=== PATIENT | female | born 1945 | race Caucasian/White ===

== ENCOUNTER 2020-04-19 13:17 | Emergency (ER) | payer MEDICARE, SELFPAY ==
[2020-04-19 13:28] VITALS: BP 122/74; PULSE 72; RESP 16; TEMP 36.9; O2SAT 99; BMI 21.2
--- NOTE | 2020-04-19 13:36 | XR_ITS ---
WS: [id number] XR chest 1V portable [id number] REASON FOR EXAM: fever FINDINGS: The heart and mediastinum are within normal limits. No active pulmonary parenchymal or pleural disease is noted. Bony thorax is intact. XR/XR chest 1V portable [id number] IMPRESSION: No acute chest abnormality.
--- NOTE | 2020-04-19 13:43 | ED_ITS ---
HPI - General Adult General: Chief complaint: General Medical Stated complaint: FLU LIKE SYMPTOMS, FEVER X 3 DAYS Time Seen by Provider: 04/19/20 13:33 Source: patient and EMS Mode of arrival: EMS Limitations: no limitations History of Present Illness: HPI narrative: 75-year-old female who states that over the last 3 days she has had subjective fevers at home along with body ac hes. She denies any vomiting or diarrhea. She states she has had chills just felt ill. She is afebrile here. She denies any cough. She denies any dysuria. She denies any chest pain or neck pain. States she had a mild headache she rates a 3 out of 10. Associated symptoms: Deny chest pain, dyspnea, headache(s), nausea, rash or vomiting Review of Systems Const: Reports: fever(s), chills and body aches Eyes: Denies: blurry vision or eye discomfort ENMT: Denies: throat pain or dental pain Card: Denies: chest pain Resp: Denies: dyspnea GI: Denies: abdominal pain, nausea, vomiting or diarrhea : Denies: dysuria Musc: Denies: neck pain or back pain Skin/Breast: Denies: rash Neuro: Denies: headache(s) Psych: Denies: depression Yuri/Lymph: Denies: easy bruising All/Imm: Denies: urticaria Physical Exam Const: COMMON NORMALS: no acute distress, patient oriented x3 and healthy appearing HENMT: COMMON NORMALS: normocephalic and atraumatic HEAD & SCALP: normocephalic and atraumatic Eye: COMMON NORMALS: Equal, round and reactive pupils present and EOMs intact bilaterally PUPIL: Yes Equal, round and reactive pupils present Neck/C-Spine: COMMON NORMALS: full ROM and supple Chest: COMMONS NORMALS: normal inspection of the chest and normal palpation of entire chest wall Resp: COMMON NORMALS: normal respiratory effort, No retractions, No use of accessory muscles and clear to auscultation bilaterally AUSCULTATION: clear to auscultation bilaterally Cardio: COMMON NORMALS: regular rate, regular rhythm and No murmurs present (Cardio) RATE: regular rate RHYTHM: regular rhythm GI: COMMON NORMALS: Normal to inspection, nondistended, normoactive bowel sounds present, Soft to palpation, non-tender and no masses PALPATION: Yes Soft to palpation Extremity: COMMON NORMALS: normal to inspection and full ROM Neuro: COMMON NORMALS: patient oriented x3, moves all extremities and no focal motor deficits Psych: COMMON NORMALS: mental status grossly normal, Normal thought process present and cooperative THOUGHT PROCESS: Normal thought process present Skin: COMMON NORMALS: no rashes or lesions noted and no wounds GENERAL SKIN EXAM: no rashes or lesions noted Course Vital Signs: Vital signs: Vital Signs Temperature 98.4 F 04/19/20 13:28 Pulse Rate 72 04/19/20 13:28 Respiratory Rate 18 04/19/20 14:34 Blood Pressure 132/75 04/19/20 16:01 Pulse Oximetry 96 04/19/20 16:01 MDM - General Adult MDM Narrative: Medical decision making narrative: Patient presents here with fever and flulike symptoms. She is well-appearing here and blood work here including white count and urinalysis are normal. X-ray shows no acute pneumonia. Her flu test was negative. We will swab her for COVID and she is to self quarantine and return if worsening. Lab Data: Labs: Lab Results 04/19/20 04/19/20 04/19/20 Range/Units 13:48 13:48 14:40 WBC 6.0 (4.0-10.0) 10^3/ uL RBC 4.26 (4.1-5.3) 10^6/u L Hgb 13.2 (11.5-15.3) g/dL Hct 39.8 (37.0-47.0) % MCV 93.4 (81-99) fL MCH 31.0 (28.0-34.0) pg MCHC 33.2 (30.0-36.0) g/dL RDW 13.2 (12.1-15.1) % Plt Count 226 (130-400) 10^3/c mm MPV 9.3 (7.4-10.4) fL Neut % (Auto) 66.1 % Lymph % (Auto) 19.3 % [place] % (Auto) 13.3 % Eos % (Auto) 0.5 % Baso % (Auto) 0.5 % Neut # (Auto) 3.96 (1.8-7.7) 10^3/u L Lymph # (Auto) 1.2 (0.8-4.8) 10^3/u L [place] # (Auto) 0.8 (0.2-0.9) 10^3/u L Eos # (Auto) 0.0 (0.0-0.8) 10^3/u L Baso # (Auto) 0.0 (0.0-0.1) 10^3/u L Nucleated RBC % (a uto) 0 % Nucleated RBCs # 0.0 /100WBC Sodium 136 (136-145) mmol/L Potassium 4.0 (3.5-5.1) mmol/L Chloride 96 L (98-107) mmol/L Carbon Dioxide 25 (22-29) mmol/L Anion Gap 19.0 (5-19) BUN 22 (8-23) mg/dL Creatinine 1.0 H (0.5-0.9) mg/dL GFR Calculation Not Reportable Glucose 105 (65-115) mg/dL Calculated Osmolal ity 286 (285-295) mOsm/k g Calcium 9.8 (8.5-10.5) mg/dL Total Bilirubin 0.6 (0.15-1.2) mg/dL AST 18 (0-32) U/L ALT 11 (0-33) U/L Alkaline Phosphata se 60 (35-105) IU/L Total Protein 7.4 (6.6-8.7) g/dL Albumin 4.1 (3.5-5.2) g/dL Globulin 3.3 (1.3-4.6) g/dL Urine Color (Yellow) Urine Appearance (CLEAR) Urine pH (5-7) Ur Specific Gravit y (1.005-1.030) Urine Protein (Negative) Urine Glucose (UA) (Normal) Urine Ketones (Negative) Urine Blood (Negative) Urine Nitrate (Negative) Urine Bilirubin (Negative) Prot Sulfosalicyli c Acd (Negative) Urine Urobilinogen (Negative) mg/dL Ur Leukocyte Isabel ase (Negative) Urine RBC (0-2) /hpf Urine WBC (0-5) /hpf Ur Squamous Epith Cells (0-5) /hpf Ur Transition Epit h Cell /hpf Amorphous Sediment Urine Bacteria (NONE) /hpf Hyaline Casts /lpf Fine Granular Cast s /lpf Influenza Type A A g Negative (Negative) Influenza Type B A g Negative (Negative) 04/19/20 Range/Units 16:20 WBC (4.0-10.0) 10^3/ uL RBC (4.1-5.3) 10^6/u L Hgb (11.5-15.3) g/dL Hct (37.0-47.0) % MCV (81-99) fL MCH (28.0-34.0) pg MCHC (30.0-36.0) g/dL RDW (12.1-15.1) % Plt Count (130-400) 10^3/c mm MPV (7.4-10.4) fL Neut % (Auto) % Lymph % (Auto) % [place] % (Auto) % Eos % (Auto) % Baso % (Auto) % Neut # (Auto) (1.8-7.7) 10^3/u L Lymph # (Auto) (0.8-4.8) 10^3/u L [place] # (Auto) (0.2-0.9) 10^3/u L Eos # (Auto) (0.0-0.8) 10^3/u L Baso # (Auto) (0.0-0.1) 10^3/u L Nucleated RBC % (a uto) % Nucleated RBCs # /100WBC Sodium (136-145) mmol/L Potassium (3.5-5.1) mmol/L Chloride (98-107) mmol/L Carbon Dioxide (22-29) mmol/L Anion Gap (5-19) BUN (8-23) mg/dL Creatinine (0.5-0.9) mg/dL GFR Calculation Glucose (65-115) mg/dL Calculated Osmolal ity (285-295) mOsm/k g Calcium (8.5-10.5) mg/dL Total Bilirubin (0.15-1.2) mg/dL AST (0-32) U/L ALT (0-33) U/L Alkaline Phosphata se (35-105) IU/L Total Protein (6.6-8.7) g/dL Albumin (3.5-5.2) g/dL Globulin (1.3-4.6) g/dL Urine Color Yellow (Yellow) Urine Appearance Hazy A (CLEAR) Urine pH 8 H (5-7) Ur Specific Gravit y 1.015 (1.005-1.030) Urine Protein Neg (Negative) Urine Glucose (UA) Norm (Normal) Urine Ketones 1+ H (Negative) Urine Blood Neg (Negative) Urine Nitrate Negative (Negative) Urine Bilirubin Neg (Negative) Prot Sulfosalicyli c Acd Negative (Negative) Urine Urobilinogen 1 H (Negative) mg/dL Ur Leukocyte Isabel ase Negative (Negative) Urine RBC 0-4 H (0-2) /hpf Urine WBC None (0-5) /hpf Ur Squamous Epith Cells 0-4 H (0-5) /hpf Ur Transition Epit h Cell 0-4 /hpf Amorphous Sediment Not Reportable Urine Bacteria Trace (NONE) /hpf Hyaline Casts 0-4 H /lpf Fine Granular Cast s 0-4 H /lpf Influenza Type A A g (Negative) Influenza Type B A g (Negative) Imaging Data^: CXR: Radiologist's impression: [address] [address] XRay Report Signed Patient: Guillermina Camara Unit #: [id number] : 1945 Age/Sex: 75 / F ADM Date: 04/19/20 Loc: ER Room/Bed: Attending Dr: Ordering Provider/Ordering MD: Alex Weston MD Date of Service: 04/19/20 Procedure(s): XR chest 1V portable [id number] Accession Number(s): [id number] Report Number: [id number] WS: [id number] XR chest 1V portable [id number] REASON FOR EXAM: fever FINDINGS: The heart and mediastinum are within normal limits. No active pulmonary parenchymal or pleural disease is noted. Bony thorax is intact. XR/XR chest 1V portable [id number] IMPRESSION: No acute chest abnormality. Discharge Plan Discharge Patient Disposition: Home Clinical Impression: Viral illness Condition: Stable Discharge Orders: Discharge Order (Routine); Ordered 04/19/20 Ordered By: Alex Weston Referrals: Krishna Last DO [Primary Care Provider] - 1-3 days Discharge Diet: Advance as tolerated Discharge Activity: Resume usual activity Patient Instructions: Viral Syndrome (ED) Coding Level of Care Code ED Tailings Worker for Chg Fwd Exam Comprehensive
[2020-04-19 13:59] LABS: Basophils % 0.5 %; Eosinophils % 0.5 %; Hematocrit 39.8 % (37.0-47.0); Hemoglobin 13.2 g/dL (11.5-15.3); Lymphocytes # 1.2 10^3/uL (0.8-4.8); Lymphocytes % 19.3 %; Mean Corpuscular HGB Conc 33.2 g/dL (30.0-36.0); Mean Corpuscular Volume 93.4 fL (81-99); Mean Platelet Volume 9.3 fL (7.4-10.4); Monocytes # 0.8 10^3/uL (0.2-0.9); Monocytes % 13.3 %; Neutrophils # 3.96 10^3/uL (1.8-7.7); Neutrophils % 66.1 %; Nucleated Red Blood Cells % 0 %; Platelet Count 226 10^3/cmm (130-400); Red Blood Count 4.26 10^6/uL (4.1-5.3); Red Cell Distribution Width 13.2 % (12.1-15.1)
[2020-04-19 14:16] LABS: Alanine Aminotransferase 11 U/L (0-33); Albumin Level 4.1 g/dL (3.5-5.2); Alkaline Phosphatase 60 IU/L (35-105); Aspartate Amino Transferase 18 U/L (0-32); Blood Urea Nitrogen 22 mg/dL (8-23); Calcium 9.8 mg/dL (8.5-10.5); Carbon Dioxide 25 mmol/L (22-29); Chloride 96 mmol/L (98-107); Globulin 3.3 g/dL (1.3-4.6); Glucose 105 mg/dL (65-115); Osmolality Calculated 286 mOsm/kg (285-295); Sodium 136 mmol/L (136-145); Total Bilirubin 0.6 mg/dL (0.15-1.2); Total Protein 7.4 g/dL (6.6-8.7)
[2020-04-19 14:34] VITALS: BP 132/70; RESP 18; O2SAT 97
[2020-04-19 14:59] LABS: Slide Review Slide Review Perform
[2020-04-19 16:01] VITALS: BP 132/75; O2SAT 96
[2020-04-19 16:01] LABS: Influenza A by IFA Negative (Negative); Influenza B by IFA Negative (Negative)
[2020-04-19] MEDS: acetaminophen 500 mg Tablet 1000 MG PO (16:05)
--- NOTE | 2020-04-19 16:11 | PC.NURSE ---
Patient updated on plan of care, awaiting COVID results. Patient given PO Tylenol for headache and assisted to [facility] for urine sample. She denies any needs. She transfers without concerns.
[2020-04-19 16:51] LABS: Add Urine Microscopic? YES; Bilirubin Urine Neg (Negative); Blood Urine Neg (Negative); Glucose Urine UA Norm (Normal); Ketones Urine 1+ (Negative); Leukocyte Esterase Urine Negative (Negative); Nitrate Urine Negative (Negative); Protein Urine Neg (Negative); Specific Gravity, Urine 1.015 (1.005-1.030); Sulfosalicylic Acid Urine Negative (Negative); Urine Appearance Hazy (CLEAR); Urine Color Yellow (Yellow); Urobilinogen Urine 1 mg/dL (Negative); pH Urine 8 (5-7)
[2020-04-19 16:58] LABS: RBC Urine 0-4 /hpf (0-2)
[2020-04-19 16:59] LABS: Add Urine Culture? No; Bacteria Urine TRACE /hpf; Fine Granular Casts Urine 0-4 /lpf; Hyaline Casts Urine 0-4 /lpf; Squamous Epithelial Cell Urine 0-4 /hpf (0-5); Transitional Epi Cells Urine 0-4 /hpf
[2020-04-19 17:30] VITALS: BP 139/77; PULSE 65; RESP 18; O2SAT 97
[2020-04-20 22:17] LABS: Quest SARS-CoV-2 RNA DETECTED (NOT DETECTED)
--- NOTE | 2020-04-21 08:39 | PC.NURSE ---
Pt called and notified of positive COVID results.
== END 2020-04-19 17:30 | disposition home or self-care (01) ==
PROVIDERS: Emergency Provider Emergency Medicine; PCP Family Medicine
DX: B34.9 Viral infection, unspecified (principal); U07.1 COVID-19
CPT/HCPCS: 12345; 36415; 71045; 80053; 81001; 85025; 87635; 87804; 99283

== ENCOUNTER 2020-06-12 15:17 | Outpatient (CLI) | payer MEDICARE, SELFPAY ==
--- NOTE | 2020-06-12 15:40 | XRR_ITS ---
PROCEDURE INFORMATION: Exam: XR Lumbosacral Spine, 2 or 3 Views Exam date and time: 06/12/2020 3:40 PM Age: 75 years old Clinical indication: Low back pain; Additional info: Lumbar radiculopathy TECHNIQUE: Imaging protocol: XR of the lumbosacral spine, 2 or 3 views. COMPARISON: CT abdomen pelvis w con* [id number] 04/06/2019 4:53 PM FINDINGS: Bones/joints: There is mild levoscoliosis. There is diffuse osteopenia. Severe endplate degenerative changes at L5-S1 and severe facet degenerative changes in the lower lumbar spine are noted. There is no subluxation. There is chronic appearing height loss of the superior endplate of L3 with bony sclerosis and marginal osteophyte formation which is new compared to the old March 2019 CT scan. No acute fracture is identified. Soft tissues: Unremarkable. 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 No acute bony abnormality is identified.
== END 2020-06-12 15:18 | disposition home or self-care (01) ==
PROVIDERS: PCP Family Medicine; Visit Provider Family Medicine
DX: M54.16 Radiculopathy, lumbar region (principal); S32.039A Unspecified fracture of third lumbar vertebra, initial encounter for closed fracture; X58.XXXA Exposure to other specified factors, initial encounter
CPT/HCPCS: 72100

== ENCOUNTER 2021-11-08 09:48 | Outpatient (CLI) | payer MEDICARE, SELFPAY ==
--- NOTE | 2021-11-08 10:16 | CT_ITS ---
WS: [id number] CT ABDOMEN PELVIS TECHNIQUE: Noncontrast CT of the abdomen and pelvis with coronal and sagittal reformatted images. CLINICAL INFORMATION: CYSTITIS COMPARISON: DLP: 915.[address] scans at [facility] use at least one of these dose optimization techniques: automated e xposure control; mA and/or kV adjustment per patient size (includes targeted exams where dose is matc hed to clinical indication); or iterative reconstruction. FINDINGS: Noncontrast liver is normal. Prior cholecystectomy. Lung bases are well aerated. Normal GE junction. Adrenal glands are normal. No hydronephrosis in either kidney. No obstructing renal or ureteral calcu li. Fatty atrophy of the pancreas. Physiologic postcholecystectomy bile duct dilatation. Normal calib er abdominal aorta. Mild aortic calcification. Sigmoid diverticulosis. No evidence of acute diverticulitis. No evidence of high-grade small or large bowel obstruction. No periaortic lymphadenopathy. No pelvic or inguinal lymphadenopathy. Diffuse bladder wall thickening likely due to cystitis. Bladder is decompressed. Recommend correlatio n for UTI. Moderate spondylitic changes lumbar spine. Mild chronic appearing compression superior endplate L3. D isc space narrowing worse L5-S1 with subchondral cystic changes. Mild disc bulging L3-L4 L4-L5 and L5 -S1. CT/CT kidney stone [id number] IMPRESSION: 1. No hydronephrosis in either kidney. No obstructing renal or ureteral calcul i. 2. Diffuse bladder wall thickening consistent with cystitis. Recommend correla tion for UTI. Bladder is decompressed. 3. Sigmoid diverticulosis. No evidence of acute diverticulitis. 4. Prior cholecystectomy. 5. Chronic appearing mild compression superior endplate L3. This is new from but has a chronic appearance. This was present on the prior radiograph Nove mber 2020
== END 2021-11-08 09:49 | disposition home or self-care (01) ==
LOC: RAD 09:59
PROVIDERS: PCP Family Medicine; Visit Provider Clinical Nurse Specialist Adult Health
DX: N30.90 Cystitis, unspecified without hematuria (principal)
CPT/HCPCS: 74176

== ENCOUNTER 2022-02-05 14:40 | Outpatient (CLI) | payer MEDICARE, SELFPAY ==
--- NOTE | 2022-02-05 15:20 | XR_ITS ---
WS: [id number] Exam: XR lumbar spine 2-3V* [id number] Date/Time of Exam: 02/05/2022 3:20 PM Reason For Exam: post fall, continued pain down right leg Comparison 06/12/2020. There is a low-grade nondisplaced compression fracture of L1 with about 10% loss in vertebral height and no posterior displacement. Probable old low-grade compression fracture upper plate of L3. This is stable. There is spondylosis. Degenerative vacuum disks are noted at L4-5 and L5-S1. Facet arthropat hy at all levels. Spondylosis. Mild levoscoliosis. XR/XR lumbar spine 2-3V* [id number] IMPRESSION: 1. Low-grade nondisplaced compression fracture of L1 which is probably a healin g fracture. About 10% loss of vertebral height and no significant displacement. 2. Degenerative changes and mild scoliosis. Osteopenia. 3. Probable old healed low-grade compression fracture of the upper plate of L3.
== END 2022-02-05 14:41 | disposition home or self-care (01) ==
LOC: RAD 14:46
PROVIDERS: PCP Family Medicine; Visit Provider Family Medicine
DX: M54.16 Radiculopathy, lumbar region (principal); S32.019A Unspecified fracture of first lumbar vertebra, initial encounter for closed fracture; W19.XXXA Unspecified fall, initial encounter
CPT/HCPCS: 72100

== ENCOUNTER 2022-03-04 15:21 | Emergency (ER) | payer MEDICARE, SELFPAY ==
[2022-03-04 15:31] VITALS: BP 145/82; PULSE 107; RESP 21; TEMP 36.9; O2SAT 97; BMI 22.3
--- NOTE | 2022-03-04 16:20 | CTR_ITS ---
PROCEDURE INFORMATION: Exam: CT Abdomen And Pelvis With Contrast Exam date and time: 03/04/2022 7:16 PM Age: 77 years old Clinical indication: Pain; Other: Left flank; Prior surgery; Surgery date: 6+ months; Surgery type: Gb, appx, hyst; Additional info: Abd pain TECHNIQUE: Imaging protocol: Computed tomography of the abdomen and pelvis with contrast. Radiation optimization: All CT scans at this facility use at least one of these dose optimization techniques: automated exposure control; mA and/or kV adjustment per patient size (includes targeted exams where dose is matched to clinical indication); or iterative reconstruction. Contrast material: OMNIPAQUE 350; Contrast volume: 80 ml; Contrast route: INTRAVENOUS (IV); COMPARISON: CT abdomen pelvis w con* [id number] 04/06/2019 4:53 PM RADIATION DOSE METRICS: Total DLP (mGy-cm): 405.36 FINDINGS: Lungs: Right lower lobe atelectasis. Liver: Hepatic steatosis. Gallbladder and bile ducts: Cholecystectomy. Pancreas: Normal. No ductal dilation. Spleen: Normal. No splenomegaly. Adrenal glands: Normal. No mass. Kidneys and ureters: Normal. No hydronephrosis. Stomach and bowel: Mildly prominent fluid in the small bowel without dilation suggestive of an enteritis. Diverticulosis without diverticulitis. Mild left colonic wall thickening may reflect a colitis. Appendix: No evidence of appendicitis. Intraperitoneal space: Unremarkable. No free air. No significant fluid collection. Vasculature: Unremarkable. No abdominal aortic aneurysm. Lymph nodes: Unremarkable. No enlarged lymph nodes. Urinary bladder: Unremarkable as visualized. Reproductive: Unremarkable as visualized. Bones/joints: L1 vertebral body compression fracture with mild retropulsion of bony fragments with minimal spinal canal narrowing, new compared to prior exam. Soft tissues: Unremarkable. CT/CT abdomen pelvis w con* [id number] IMPRESSION: 1. Mildly prominent fluid in the small bowel without dilation suggestive of an enteritis. 2. Mild left colonic wall thickening may reflect a colitis or be due to nondistention depending on the clinical scenario. 3. Hepatic steatosis. 4. Cholecystectomy. 5. Diverticulosis without diverticulitis. 6. Right lower lobe atelectasis. 7. L1 vertebral body compression fracture with mild retropulsion of bony fragments with minimal spinal canal narrowing, new compared to prior exam.
[2022-03-04] MEDS: sodium chloride 0.9% 500 ML 999 ML IV (16:35)
[2022-03-04 16:46] VITALS: BP 139/85; PULSE 82; RESP 16; O2SAT 96
--- NOTE | 2022-03-04 16:53 | W.ED.ABDPA2 ---
HPI - Abdominal Pain General: Chief Complaint: Abdominal Pain Stated Complaint: Abd Pains, Nausea Time Seen by Provider: 03/04/22 16:02 Source: patient Mode of arrival: ambulatory Limitations: no limitations History of Present Illness: 77-year-old female presents to the emergency room complaining of abdominal pain generally seems to be in the epigastric area and she indicates that. Is been going on for last 2 days she denies nausea vomiting diarrhea, she is reporting discomfort with bowel movements and with burning with urination. No fever sweats chills no hematochezia or melena. She denies any chest pain or shortness of breath. MD elicited complaint: abdominal pain Onset (ago): day(s) (2) Pain Consistency: constant Location: Epigastric Severity: moderate Quality: cramping Radiation: none Migration to: no migration Exacerbating factors: nothing Relieving factors: nothing Associated Symptoms: Denies anorexia, belching, bloating, change in bowel habits, change in stool character, chills, coffee ground emesis, constipation, GI cramping, diarrhea, dyspepsia, dysuria, excessive flatus, fever(s), heartburn, hematochezia, hematuria, hematemesis, fecal incontinence, loose stools, melena, nausea, poor appetite, syncope and vomiting Review of Systems Const: Denies: fever(s) or chills ENMT: Denies: throat pain, ear or mastoid pain, nasal discharge or nasal congestion Card: Denies: syncope Resp: Denies: dyspnea, productive cough or non-productive cough GI: Denies: nausea, vomiting, hematemesis, coffee ground emesis, heartburn, diarrhea, constipation, bloating, GI cramping, belching, excessive flatus, fecal incontinence, change in bowel habits, change in stool character, hematochezia or melena : Denies: dysuria or hematuria Skin/Breast: Denies: rash or pruritus PFSH ED PFSH: Medical History Anxiety Arthritis Fibromyalgia Insomnia Recurrent cystitis Stress Surgical History Hx of appendectomy Hx of cholecystectomy Hx of hysterectomy Family History Mother Diabetes Chronic kidney disease (CKD) Social History Smoking and tobacco status: never smoked Alcohol intake: never Marital status: Current occupational status: employed Physical Exam Const: GENERAL APPEARANCE: cooperative and comfortable ORIENTATION/CONSCIOUSNESS: Yes awake, Yes oriented to person, Yes oriented to place and Yes oriented to time HENMT: COMMON NORMALS: normocephalic and atraumatic HEAD & SCALP: normocephalic and atraumatic Resp: COMMON NORMALS: normal respiratory effort, No retractions, No use of accessory muscles and clear to auscultation bilaterally AUSCULTATION: clear to auscultation bilaterally Cardio: COMMON NORMALS: regular rate, regular rhythm and No murmurs present (Cardio) RATE: regular rate RHYTHM: regular rhythm GI: COMMON NORMALS: No hepatosplenomegaly present AUSCULTATION: Yes normoactive bowel sounds PALPATION: Yes Tenderness to palpation present (GI) (Epigastric), No Guarding due to palpation present (GI) and Yes No hepatosplenomegaly present Extremity: COMMON NORMALS: normal to inspection, capillary refill normal, no clubbing, cyanosis or edema, no calf tenderness and no pedal edema Neuro: SENSORIUM/ORIENTATION: Yes oriented to person, Yes oriented to place and Yes oriented to time Skin: COMMON NORMALS: no rashes or lesions noted GENERAL SKIN EXAM: no rashes or lesions noted Course Vital Signs: Vital signs: Vital Signs Temperature 98.5 F 03/04/22 15:31 Pulse Rate 82 03/04/22 16:46 Respiratory Rate 16 03/04/22 16:46 Blood Pressure 139/85 03/04/22 16:46 Pulse Oximetry 96 03/04/22 16:46 Oxygen Delivery Me thod 03/04/22 16:46 MDM - Abdominal Pain Medical Decision Making Care signed out to Dr. Weston at change of shift. See final notes for diagnosis and disposition. Lab Data : 03/04/22 16:20 03/04/22 16:20 Labs/Radiology: Laboratory Results WBC 4.8 10^3/uL (4.0-10.0) 03/04/22 16:20 RBC 4.32 10^6/uL (4.1-5.3) 03/04/22 16:20 Hgb 14.5 g/dL (11.5-15.3) 03/04/22 16:20 Hct 41.7 % (37.0-47.0) 03/04/22 16:20 MCV 96.5 fl (81-99) 03/04/22 16:20 MCH 33.6 pg (28.0-34.0) 03/04/22 16:20 MCHC 34.8 g/dL (30.0-36.0) 03/04/22 16:20 RDW 11.9 % (12.1-15.1) L 03/04/22 16:20 Plt Count 253 10^3/cmm (130-400) 03/04/22 16:20 MPV 10.3 fL (7.4-10.4) 03/04/22 16:20 Neut % (Auto) 41.0 % 03/04/22 16:20 Lymph % (Auto) 47.6 % 03/04/22 16:20 [place] % (Auto) 8.9 % 03/04/22 16:20 Eos % (Auto) 1.9 % 03/04/22 16:20 Baso % (Auto) 0.4 % 03/04/22 16:20 Neut # (Auto) 1.97 10^3/uL (1.8-7.7) 03/04/22 16:20 Lymph # (Auto) 2.3 10^3/uL (0.8-4.8) 03/04/22 16:20 [place] # (Auto) 0.4 10^3/uL (0.2-0.9) 03/04/22 16:20 Eos # (Auto) 0.1 10^3/uL (0.0-0.8) 03/04/22 16:20 Baso # (Auto) 0.0 10^3/uL (0.0-0.1) 03/04/22 16:20 Nucleated RBC % (auto) 0 % 03/04/22 16:20 Nucleated RBCs # 0.0 /100WBC 03/04/22 16:20 Sodium Cancelled 03/04/22 16:20 Potassium Cancelled 03/04/22 16:20 Chloride Cancelled 03/04/22 16:20 Carbon Dioxide Cancelled 03/04/22 16:20 Anion Gap Cancelled 03/04/22 16:20 BUN Cancelled 03/04/22 16:20 Creatinine Cancelled 03/04/22 16:20 GFR Calculation Cancelled 03/04/22 16:20 Glucose Cancelled 03/04/22 16:20 Calculated Osmolality Cancelled 03/04/22 16:20 Calcium Cancelled 03/04/22 16:20 Total Bilirubin Cancelled 03/04/22 16:20 AST Cancelled 03/04/22 16:20 ALT Cancelled 03/04/22 16:20 Alkaline Phosphatase Cancelled 03/04/22 16:20 Total Protein Cancelled 03/04/22 16:20 Albumin Cancelled 03/04/22 16:20 Globulin Cancelled 03/04/22 16:20 Lipase Cancelled 03/04/22 16:20 Discharge Plan Discharge Condition: Stable Prescriptions: No Action gabapentin 100 mg capsule 100 mg PO TID Qty: 90 0RF prednisone 20 mg tablet 20 mg PO DAILY Qty: 10 0RF zolpidem 10 mg tablet 5 - 10 mg PO DAILY hydrochlorothiazide 25 mg tablet 12.5 mg PO DAILY cyclobenzaprine 5 mg tablet 5 mg PO TID PRN (Reason: muscle spasm) Qty: 20 1RF Tylenol Ex Str Arthritis Pain 500 mg Tablet 500 mg PO QID PRN (Reason: Pain) Women's 50 Plus Multivitamin 400 mcg-500 mg calcium-20 mcg Tablet 1 tab PO DAILY methadone 5 mg tablet 5 mg PO DAILY tramadol 50 mg tablet 50 mg PO TID Referrals: Krishna Last, [Primary Care Provider] - Coding Level of Care Code ED [employer] Supervisor for Chg Fwd Exam Detailed
[2022-03-04 16:54] LABS: Basophils % 0.4 %; Eosinophils # 0.1 10^3/uL (0.0-0.8); Eosinophils % 1.9 %; Hematocrit 41.7 % (37.0-47.0); Hemoglobin 14.5 g/dL (11.5-15.3); Lymphocytes # 2.3 10^3/uL (0.8-4.8); Lymphocytes % 47.6 %; Mean Corpuscular HGB Conc 34.8 g/dL (30.0-36.0); Mean Corpuscular Hemoglobin 33.6 pg (28.0-34.0); Mean Corpuscular Volume 96.5 fl (81-99); Mean Platelet Volume 10.3 fL (7.4-10.4); Monocytes # 0.4 10^3/uL (0.2-0.9); Monocytes % 8.9 %; Neutrophils # 1.97 10^3/uL (1.8-7.7); Nucleated Red Blood Cells % 0 %; Platelet Count 253 10^3/cmm (130-400); Red Blood Count 4.32 10^6/uL (4.1-5.3); Red Cell Distribution Width 11.9 % (12.1-15.1); White Blood Count 4.8 10^3/uL (4.0-10.0)
[2022-03-04] MEDS: ketorolac 30 mg/mL INJ 15 MG IVP (17:57)
[2022-03-04 19:08] LABS: Alanine Aminotransferase 18 U/L (0-33); Albumin Level 4.1 g/dL (3.5-5.2); Alkaline Phosphatase 64 U/L (35-105); Anion Gap 15.9 (5-19); Aspartate Amino Transferase 23 U/L (0-32); Blood Urea Nitrogen 17 mg/dL (8-23); Carbon Dioxide 24 mmol/L (22-29); Chloride 103 mmol/L (98-107); Globulin 3.1 g/dL (1.3-4.6); Glucose 77 mg/dL (65-115); Lipase 31 U/L (13-60); Osmolality Calculated 288 mOsm/kg (285-295); Potassium 3.9 mmol/L (3.5-5.1); Sodium 139 mmol/L (136-145); Total Bilirubin 0.4 mg/dL (0.15-1.2); Total Protein 7.2 g/dL (6.6-8.7)
--- NOTE | 2022-03-04 19:13 | PC.NURSE ---
report given to MYA Rodney
[2022-03-04] MEDS: iohexol 350 mg/mL 100 mL Btl 80 ML IV (19:18)
[2022-03-04 19:41] LABS: Add Urine Microscopic? NO; Charge for UA Resulting for Rev
[2022-03-04 19:47] LABS: Bilirubin Urine Neg (Negative); Blood Urine Neg (Negative); Glucose Urine UA Norm (Normal); Ketones Urine Negative (Negative); Leukocyte Esterase Urine Negative (Negative); Nitrate Urine Negative (Negative); Protein Urine Neg (Negative); Specific Gravity, Urine 1.005 (1.005-1.030); Urine Appearance Clear (CLEAR); Urine Color Yellow (Yellow); Urobilinogen Urine Norm (Negative); pH Urine 6 (5-7)
[2022-03-04] MEDS: acetaminophen 500 mg Tablet 1000 MG PO (19:52)
[2022-03-04] MEDS: ondansetron 2 mg/ML SDV 2 mL 4 MG IVP (20:09)
[2022-03-04 20:13] VITALS: RESP 20; O2SAT 99
[2022-03-04] MEDS: morphine 4 mg/mL SDV 1 mL IVP (20:13)
== END 2022-03-04 20:45 | disposition home or self-care (01) ==
PROVIDERS: Family Medicine; Emergency Provider Emergency Medicine; PCP Family Medicine
DX: R10.13 Epigastric pain (principal); Z79.891 Long term (current) use of opiate analgesic
CPT/HCPCS: 74177; 80053; 81003; 83690; 85025; 96374; 96375; 99285; J1885; J2270; J2405; J7040; Q9967

== ENCOUNTER 2022-03-08 02:02 | Emergency (ER) | payer MEDICARE, SELFPAY ==
[2022-03-08 02:05] VITALS: BP 154/103; PULSE 104; RESP 18; TEMP 36.7; O2SAT 93; BMI 22.1
--- NOTE | 2022-03-08 02:12 | ED_ITS ---
HPI - Abdominal Pain General: Chief Complaint: Abdominal Pain Stated Complaint: abd pain Time Seen by Provider: 03/08/22 02:06 Source: patient Mode of arrival: ambulatory Limitations: no limitations History of Present Illness: 77-year-old female who was seen here 2 days ago diagnosed with colitis her PCP did start her on Augmentin she states that tonight she been having increasing abdominal pain along with pain in her legs she does have a history of fibromyalgia states she did not take her methadone today. Rates her pain a 6 out of 10 she had nausea no vomiting no fever. Associated Symptoms: Denies chills, dysuria and fever(s) Review of Systems Const: Denies: fever(s), chills, body aches or change in appetite Eyes: Denies: blurry vision or eye discomfort ENMT: Denies: throat pain or dental pain Card: Denies: chest pain Resp: Denies: dyspnea GI: Reports: abdominal pain : Denies: dysuria Musc: Denies: neck pain or back pain Skin/Breast: Denies: rash Neuro: Denies: headache(s) Psych: Denies: depression Yuri/Lymph: Denies: easy bruising All/Imm: Denies: urticaria PFSH ED PFSH: Medical History Anxiety Arthritis Fibromyalgia Insomnia Recurrent cystitis Stress Surgical History Hx of appendectomy Hx of cholecystectomy Hx of hysterectomy Family History Mother Diabetes Chronic kidney disease (CKD) Social History Smoking and tobacco status: never smoked Alcohol intake: never Marital status: Current occupational status: employed Physical Exam Const: COMMON NORMALS: no acute distress, patient oriented x3 and healthy appearing HENMT: COMMON NORMALS: normocephalic and atraumatic HEAD & SCALP: normocephalic and atraumatic Eye: COMMON NORMALS: Equal, round and reactive pupils present and EOMs intact bilaterally PUPIL: Yes Equal, round and reactive pupils present Neck/C-Spine: COMMON NORMALS: full ROM and supple Chest: COMMONS NORMALS: normal inspection of the chest and normal palpation of entire chest wall Resp: COMMON NORMALS: normal respiratory effort, No retractions, No use of accessory muscles and clear to auscultation bilaterally AUSCULTATION: clear to auscultation bilaterally Cardio: COMMON NORMALS: regular rate, regular rhythm and No murmurs present (Cardio) RATE: regular rate RHYTHM: regular rhythm GI: COMMON NORMALS: Normal to inspection, nondistended, normoactive bowel sounds present, Soft to palpation, non-tender and no masses PALPATION: Yes Soft to palpation Extremity: COMMON NORMALS: normal to inspection and full ROM Neuro: COMMON NORMALS: patient oriented x3, moves all extremities and no focal motor deficits Psych: COMMON NORMALS: mental status grossly normal, Normal thought process present and cooperative THOUGHT PROCESS: Normal thought process present Skin: COMMON NORMALS: no rashes or lesions noted and no wounds GENERAL SKIN EXAM: no rashes or lesions noted Course Vital Signs: Vital signs: Vital Signs Temperature 98.1 F 03/08/22 02:05 Pulse Rate 104 H 03/08/22 02:05 Respiratory Rate 18 03/08/22 02:05 Blood Pressure 154/103 03/08/22 02:05 Pulse Oximetry 93 03/08/22 02:05 Oxygen Delivery Me thod 03/08/22 02:05 MDM - Abdominal Pain Medical Decision Making Patient presents here with abdominal pain she is currently on Augmentin for colitis her white count here is normal she had not taken her methadone we will prescribe her Bentyl she is to take her home pain meds she is to follow-up with PCP and return if worsening. Lab Data : 03/08/22 02:15 03/08/22 02:15 Labs/Radiology: Laboratory Results WBC 5.5 10^3/uL (4.0-10.0) 03/08/22 02:15 RBC 4.06 10^6/uL (4.1-5.3) L 03/08/22 02:15 Hgb 13.5 g/dL (11.5-15.3) 03/08/22 02:15 Hct 38.8 % (37.0-47.0) 03/08/22 02:15 MCV 95.6 fl (81-99) 03/08/22 02:15 MCH 33.3 pg (28.0-34.0) 03/08/22 02:15 MCHC 34.8 g/dL (30.0-36.0) 03/08/22 02:15 RDW 11.8 % (12.1-15.1) L 03/08/22 02:15 Plt Count 308 10^3/cmm (130-400) 03/08/22 02:15 MPV 9.0 fL (7.4-10.4) 03/08/22 02:15 Neut % (Auto) 81.3 % 03/08/22 02:15 Lymph % (Auto) 15.5 % 03/08/22 02:15 [place] % (Auto) 2.4 % 03/08/22 02:15 Eos % (Auto) 0.2 % 03/08/22 02:15 Baso % (Auto) 0.4 % 03/08/22 02:15 Neut # (Auto) 4.45 10^3/uL (1.8-7.7) 03/08/22 02:15 Lymph # (Auto) 0.9 10^3/uL (0.8-4.8) 03/08/22 02:15 [place] # (Auto) 0.1 10^3/uL (0.2-0.9) L 03/08/22 02:15 Eos # (Auto) 0.0 10^3/uL (0.0-0.8) 03/08/22 02:15 Baso # (Auto) 0.0 10^3/uL (0.0-0.1) 03/08/22 02:15 Nucleated RBC % (auto) 0 % 03/08/22 02:15 Nucleated RBCs # 0.0 /100WBC 03/08/22 02:15 Potassium 4.2 mmol/L (3.5-5.1) 03/08/22 02:15 Carbon Dioxide 25 mmol/L (22-29) 03/08/22 02:15 Anion Gap 17.2 (5-19) 03/08/22 02:15 BUN 15 mg/dL (8-23) 03/08/22 02:15 Creatinine 0.8 mg/dL (0.5-0.9) 03/08/22 02:15 GFR Calculation Not Reportable 03/08/22 02:15 Calcium 9.5 mg/dL (8.5-10.5) 03/08/22 02:15 Total Bilirubin 0.6 mg/dL (0.15-1.2) 03/08/22 02:15 AST 20 U/L (0-32) 03/08/22 02:15 ALT 17 U/L (0-33) 03/08/22 02:15 Alkaline Phosphatase 73 U/L (35-105) 03/08/22 02:15 Total Protein 8.1 g/dL (6.6-8.7) 03/08/22 02:15 Albumin 4.5 g/dL (3.5-5.2) 03/08/22 02:15 Globulin 3.6 g/dL (1.3-4.6) 03/08/22 02:15 Lipase 25 U/L (13-60) 03/08/22 02:15 Discharge Plan Discharge Patient Disposition: Home Clinical Impression: Abdominal pain Condition: Stable Prescriptions: New dicyclomine 20 mg tablet 20 mg PO TID PRN (Reason: abddominal pain) Qty: 20 0RF No Action gabapentin 100 mg capsule 100 mg PO TID Qty: 90 0RF prednisone 20 mg tablet 20 mg PO DAILY Qty: 10 0RF zolpidem 10 mg tablet 5 - 10 mg PO DAILY hydrochlorothiazide 25 mg tablet 12.5 mg PO DAILY amoxicillin-pot clavulanate 875-125 mg tablet 1 tab PO BID Qty: 20 0RF Rx Instructions: x 10 days for infection prednisone 20 mg tablet 20 mg PO DAILY Qty: 15 0RF Rx Instructions: take 2 tabs po qday x 5 days, then 1 po qday x 5 days then stop. for bowel inflammation cyclobenzaprine 5 mg tablet 5 mg PO TID PRN (Reason: muscle spasm) Qty: 20 1RF ondansetron HCl 4 mg tablet 4 mg PO Q6H PRN (Reason: nausea and vomiting) Qty: 30 1RF Rx Instructions: for nausea Tylenol Ex Str Arthritis Pain 500 mg Tablet 500 mg PO QID PRN (Reason: Pain) Women's 50 Plus Multivitamin 400 mcg-500 mg calcium-20 mcg Tablet 1 tab PO DAILY methadone 5 mg tablet 5 mg PO DAILY tramadol 50 mg tablet 50 mg PO TID dicyclomine 20 mg tablet 20 mg PO TID PRN (Reason: abdominal pain) Qty: 20 0RF Discharge Orders: Discharge ED (Routine); Ordered 03/08/22 Ordered By: Alex Weston Referrals: Krishna Last, [Primary Care Provider] - 1-3 days Discharge Diet: Advance as tolerated Discharge Activity: Resume usual activity Patient Instructions: Abdominal Pain (ED), Opioid Safety Coding Level of Care Code ED Process Control Specialist for Chg Fwd Exam Comprehensive
[2022-03-08 02:22] LABS: Basophils % 0.4 %; Eosinophils % 0.2 %; Hematocrit 38.8 % (37.0-47.0); Hemoglobin 13.5 g/dL (11.5-15.3); Lymphocytes # 0.9 10^3/uL (0.8-4.8); Lymphocytes % 15.5 %; Mean Corpuscular HGB Conc 34.8 g/dL (30.0-36.0); Mean Corpuscular Hemoglobin 33.3 pg (28.0-34.0); Mean Corpuscular Volume 95.6 fl (81-99); Monocytes # 0.1 10^3/uL (0.2-0.9); Monocytes % 2.4 %; Neutrophils # 4.45 10^3/uL (1.8-7.7); Neutrophils % 81.3 %; Nucleated Red Blood Cells % 0 %; Platelet Count 308 10^3/cmm (130-400); Red Blood Count 4.06 10^6/uL (4.1-5.3); Red Cell Distribution Width 11.8 % (12.1-15.1); White Blood Count 5.5 10^3/uL (4.0-10.0)
[2022-03-08] MEDS: ondansetron 2 mg/ML SDV 2 mL 4 MG IVP (02:32)
[2022-03-08] MEDS: HYDROmorphone 1 mg/mL INJ 1 mL 0.5 MG IVP (02:32)
[2022-03-08 02:40] LABS: Alanine Aminotransferase 17 U/L (0-33); Albumin Level 4.5 g/dL (3.5-5.2); Alkaline Phosphatase 73 U/L (35-105); Anion Gap 17.2 (5-19); Aspartate Amino Transferase 20 U/L (0-32); Blood Urea Nitrogen 15 mg/dL (8-23); Calcium 9.5 mg/dL (8.5-10.5); Carbon Dioxide 25 mmol/L (22-29); Chloride 96 mmol/L (98-107); Globulin 3.6 g/dL (1.3-4.6); Glucose 146 mg/dL (65-115); Lipase 25 U/L (13-60); Osmolality Calculated 281 mOsm/kg (285-295); Potassium 4.2 mmol/L (3.5-5.1); Sodium 134 mmol/L (136-145); Total Bilirubin 0.6 mg/dL (0.15-1.2); Total Protein 8.1 g/dL (6.6-8.7)
[2022-03-08 02:45] LABS: Add Urine Microscopic? NO; Charge for UA Resulting for Rev
[2022-03-08 03:02] LABS: Urine Color Colorless (Yellow)
[2022-03-08 03:03] LABS: Bilirubin Urine Neg (Negative); Blood Urine Neg (Negative); Glucose Urine UA Norm (Normal); Ketones Urine Negative (Negative); Leukocyte Esterase Urine Negative (Negative); Nitrate Urine Negative (Negative); Protein Urine Neg (Negative); Urine Appearance Clear (CLEAR); Urobilinogen Urine Norm (Negative); pH Urine 6 (5-7)
== END 2022-03-08 03:25 | disposition home or self-care (01) ==
PROVIDERS: Emergency Provider Emergency Medicine; PCP Family Medicine
DX: R10.9 Unspecified abdominal pain (principal); Z79.891 Long term (current) use of opiate analgesic
CPT/HCPCS: 80053; 81003; 83690; 85025; 96374; 96375; 99284; J1170; J2405

== ENCOUNTER 2022-08-30 14:49 | Emergency (ER) | payer MEDICARE, SELFPAY ==
[2022-08-30 14:55] VITALS: BP 134/75; PULSE 92; RESP 16; TEMP 37.2; O2SAT 94; BMI 30.9
--- NOTE | 2022-08-30 15:04 | CTR_ITS ---
PROCEDURE INFORMATION: Exam: CT Head Without Contrast Exam date and time: 08/30/2022 4:12 PM Age: 77 years old Clinical indication: Pain; Headache not specified TECHNIQUE: Imaging protocol: Computed tomography of the head without contrast. Radiation optimization: All CT scans at this facility use at least one of these dose optimization techniques: automated exposure control; mA and/or kV adjustment per patient size (includes targeted exams where dose is matched to clinical indication); or iterative reconstruction. Other protocol: This patient has received 2 known CTs and 0 known cardiac nuclear medicine studies in the 12 months prior to the current study. COMPARISON: CT head wo con* [id number] 04/06/2019 5:27 PM RADIATION DOSE METRICS: Total DLP (mGy-cm): 979.08 FINDINGS: Brain: There are moderate periventricular and subcortical lucencies consistent with chronic microvascular ischemic changes.The mcconnell-white differentiation is maintained. No hemorrhage. No edema. Cerebral ventricles: No ventriculomegaly. Paranasal sinuses: Visualized sinuses are unremarkable. No fluid levels. Mastoid air cells: Visualized mastoid air cells are well aerated. Bones/joints: Unremarkable. No acute fracture. Soft tissues: Unremarkable. CT/CT head wo con* [id number] IMPRESSION: No acute intracranial abnormality. Chronic microvascular ischemic changes.
--- NOTE | 2022-08-30 15:05 | W.ED.HA ---
Documented by User: CHAPARRO Hernandez 08/30/22 15:13 HPI - Headache General: Chief Complaint: Headache Stated Complaint: n/cant eat Time Seen by Provider: 08/30/22 14:51 Source: patient and family Mode of arrival: ambulatory Limitations: no limitations History of Present Illness: Patient is a 77-year-old male who presents to ED today along with her and daughter for evaluation of a headache that she states she has had over the past 48 hours. Daughter seems to think that patient does have a history of previous similar headaches although states she does not get them often. Patient recently fractured her right ankle. She states during that particular event/fall she did not strike her head. She is not on blood thinners. She is not describing any slurred speech, facial droop, numbness/tingling/loss of sensation/weakness to extremity, aphasia, visual changes/dizziness or trouble ambulating (apart from right ankle fracture). Patient takes Methadone and Tramadol daily but has not had any changes to these. MD elicited complaint: headache Onset (ago): day(s) Onset description: gradually Location: frontal and parietal Severity: severe Exacerbating factors: none Relieving factors: nothing Associated symptoms: Reports nausea; Deny chest pain, confusion, fever(s), lightheadedness, malaise, rash, syncope or vomiting Review of Systems Const: Denies: fever(s), chills, body aches, fatigue or malaise Eyes: Denies: change in vision, blurry vision, blind spots, photophobia, floaters or seeing flashes Card: Denies: chest pain, palpitations, irregular heart rhythm, edema, lightheadedness, syncope or dyspnea on exertion Resp: Denies: dyspnea, productive cough or pain on inspiration GI: Reports: nausea; Denies: abdominal pain, vomiting, heartburn or diarrhea : Denies: flank pain or dysuria Musc: Reports: joint pain (R ankle-diagnosed with ankle fracture); Denies: neck pain, back pain, extremity pain, extremity swelling or joint swelling Skin/Breast: Denies: rash Neuro: Reports: headache(s); Denies: numbness in extremities, weakness in extremities, sensory changes, lack of coordination, dizziness, confusion, behavioral changes, Slurred speech present, difficulty communicating thoughts or seizure-like activity [facility] ED PFSH: Medical History Anxiety Arthritis Fibromyalgia Insomnia Recurrent cystitis Stress Surgical History Hx of appendectomy Hx of cholecystectomy Hx of hysterectomy Family History Mother Diabetes Chronic kidney disease (CKD) Social History Smoking and tobacco status: never smoked Alcohol intake: never Marital status: Current occupational status: employed Physical Exam Const: COMMON NORMALS: average body habitus, patient oriented x3, no limitations, healthy appearing, alert and well nourished GENERAL APPEARANCE: cooperative and in distress (appears uncomfortable secondary to pain) ORIENTATION/CONSCIOUSNESS: Yes awake, Yes oriented to person, Yes oriented to place and Yes oriented to time HENMT: COMMON NORMALS: normocephalic and atraumatic HEAD & SCALP: normal to inspection, normocephalic and atraumatic FACE & SINUS: normal facial exam Eye: GENERAL EYE: appearance normal, both eyes and all related structures Neck/C-Spine: COMMON NORMALS: full ROM, no lymphadenopathy, supple and no meningeal signs Resp: COMMON NORMALS: normal respiratory effort and clear to auscultation bilaterally AUSCULTATION: clear to auscultation bilaterally Cardio: COMMON NORMALS: regular rate and regular rhythm RATE: regular rate RHYTHM: regular rhythm GI: COMMON NORMALS: Normal to inspection, nondistended, normoactive bowel sounds present, Soft to palpation, non-tender, No hepatosplenomegaly present and no masses PALPATION: Yes Soft to palpation and Yes No hepatosplenomegaly present : COMMON NORMALS: Yes no CVA tenderness BLADDER/KIDNEY EXAM: Yes no CVA tenderness Back/Pelvis: COMMON NORMALS: no CVA tenderness, thoracic and lumbar spine normal to inspection, no thoracic nor lumbar tenderness and thoraco-lumbar ROM normal Extremity: COMMON NORMALS: normal to inspection NARRATIVE EXTREMITY EXAM: splint noted to R LE for reported ankle fracture GENERAL: Yes normal exam except as noted Neuro: TAMARA COMA SCALE: document GCS findings Sawyer coma scale eye opening: Spontaneous Sawyer coma scale verbal response: Orientated Tamara coma scale motor response: Obey commands Sawyer coma scale total score: 15 COMMON NORMALS: patient oriented x3, CN's II-XII intact bilaterally, moves all extremities, no focal motor deficits and no sensory deficits noted SENSORIUM/ORIENTATION: Yes alert, Yes oriented to person, Yes oriented to place and Yes oriented to time MENINGEAL SIGNS: Yes no meningeal signs Skin: COMMON NORMALS: no rashes or lesions noted GENERAL SKIN EXAM: no rashes or lesions noted Course Vital Signs: Vital signs: Vital Signs Temperature 98.9 F 08/30/22 14:55 Pulse Rate 86 08/30/22 17:59 Respiratory Rate 15 08/30/22 17:59 Blood Pressure 120/60 08/30/22 17:59 Pulse Oximetry 93 08/30/22 17:59 Oxygen Delivery Me thod 08/30/22 17:59 MDM - Headache Lab Data 08/30/22 15:16 08/30/22 15:[address] 08/30/22 15:04 IMPRESSION: No acute intracranial abnormality. Chronic microvascular ischemic changes. Laboratory Results WBC 9.2 10^3/uL (4.0-10.0) 08/30/22 15:16 RBC 4.29 10^6/uL (4.1-5.3) 08/30/22 15:16 Hgb 14.3 g/dL (11.5-15.3) 08/30/22 15:16 Hct 42.7 % (37.0-47.0) 08/30/22 15:16 MCV 99.5 fl (81-99) H 08/30/22 15:16 MCH 33.3 pg (28.0-34.0) 08/30/22 15:16 MCHC 33.5 g/dL (30.0-36.0) 08/30/22 15:16 RDW 12.6 % (12.1-15.1) 08/30/22 15:16 Plt Count 387 10^3/cmm (130-400) 08/30/22 15:16 MPV 8.8 fL (7.4-10.4) 08/30/22 15:16 Neut % (Auto) 84.1 % 08/30/22 15:16 Lymph % (Auto) 6.3 % 08/30/22 15:16 [place] % (Auto) 8.8 % 08/30/22 15:16 Eos % (Auto) 0.2 % 08/30/22 15:16 Baso % (Auto) 0.4 % 08/30/22 15:16 Neut # (Auto) 7.75 10^3/uL (1.8-7.7) H 08/30/22 15:16 Lymph # (Auto) 0.6 10^3/uL (0.8-4.8) L 08/30/22 15:16 [place] # (Auto) 0.8 10^3/uL (0.2-0.9) 08/30/22 15:16 Eos # (Auto) 0.0 10^3/uL (0.0-0.8) 08/30/22 15:16 Baso # (Auto) 0.0 10^3/uL (0.0-0.1) 08/30/22 15:16 Nucleated RBC % (auto) 0 % 08/30/22 15:16 Nucleated RBCs # 0.0 /100WBC 08/30/22 15:16 Sodium 136 mmol/L (136-145) 08/30/22 15:16 Potassium 3.8 mmol/L (3.5-5.1) 08/30/22 15:16 Chloride 95 mmol/L (98-107) L 08/30/22 15:16 Carbon Dioxide 25 mmol/L (22-29) 08/30/22 15:16 Anion Gap 19.8 (5-19) H 08/30/22 15:16 BUN 20 mg/dL (8-23) 08/30/22 15:16 Creatinine 0.8 mg/dL (0.5-0.9) 08/30/22 15:16 GFR Calculation Not Reportable 08/30/22 15:16 Glucose 168 mg/dL (65-115) H 08/30/22 15:16 Calculated Osmolality 288 mOsm/kg (285-295) 08/30/22 15:16 Calcium 9.4 mg/dL (8.5-10.5) 08/30/22 15:16 Total Bilirubin 0.5 mg/dL (0.15-1.2) 08/30/22 15:16 AST 18 U/L (0-32) 08/30/22 15:16 ALT 17 U/L (0-33) 08/30/22 15:16 Alkaline Phosphatase 86 U/L (35-105) 08/30/22 15:16 Total Protein 7.9 g/dL (6.6-8.7) 08/30/22 15:16 Albumin 4.4 g/dL (3.5-5.2) 08/30/22 15:16 Globulin 3.5 g/dL (1.3-4.6) 08/30/22 15:16 Discharge Plan Discharge Patient Disposition: Home Clinical Impression: Headache Qualifiers: Headache type: unspecified Headache chronicity pattern: unspecified pattern Intractability: not intractable Qualified Code(s): R51.9 - Headache, unspecified Condition: Stable Prescriptions: No Action ondansetron HCl 4 mg tablet 4 mg PO Q6H PRN (Reason: nausea and vomiting) Qty: 30 1RF Rx Instructions: for nausea cyclobenzaprine 5 mg tablet 5 mg PO TID PRN (Reason: muscle spasm) Qty: 20 1RF tramadol 50 mg tablet 50 mg PO TID Qty: 90 5RF zolpidem 10 mg tablet 5 - 10 mg PO DAILY Qty: 30 5RF hydrochlorothiazide 25 mg tablet 12.5 mg PO DAILY methadone 5 mg tablet 5 mg PO DAILY acetaminophen [Tylenol Ex Str Arthritis Pain] 500 mg Tablet 500 mg PO QID PRN (Reason: Pain) Women's 50 Plus Multivitamin 400 mcg-500 mg calcium-20 mcg Tablet 1 tab PO DAILY Discharge Orders: Discharge ED (Routine); Ordered 08/30/22 Ordered By: Parveen Chavarria Referrals: Krishna Last DO [Primary Care Provider] - Discharge Diet: Usual diet Discharge Activity: Increase activity as tolerated Patient Instructions: Opioid Safety, Pain Management Activity Restrictions/Additional Instructions: Home and rest. Continue with routine medications as directed. Follow-up with primary care in 2 to 3 days for recheck. Return to ED for new concerns. Sign Out Sign Out Data: Patient Sign Out occurred on 08/30/22 at 17:13. Patient's care was discussed, and care was transferred from to Parveen Chavarria. Coding Level of Care Code ED Hand Compositor for Chg Fwd Documented by User: JACKIE Hernandez 08/30/22 18:04 HPI - Headache General: Chief Complaint: Headache Stated Complaint: n/cant eat Time Seen by Provider: 08/30/22 14:51 PFSH ED PFSH: Medical History Anxiety Arthritis Fibromyalgia Insomnia Recurrent cystitis Stress Surgical History Hx of appendectomy Hx of cholecystectomy Hx of hysterectomy Family History Mother Diabetes Chronic kidney disease (CKD) Social History Smoking and tobacco status: never smoked Alcohol intake: never Marital status: Current occupational status: employed Physical Exam Neuro: TAMARA COMA SCALE: document GCS findings Sawyer coma scale total score: 15 Course Vital Signs: Vital signs: Vital Signs Temperature 98.9 F 08/30/22 14:55 Pulse Rate 86 08/30/22 17:59 Respiratory Rate 15 08/30/22 17:59 Blood Pressure 120/60 08/30/22 17:59 Pulse Oximetry 93 08/30/22 17:59 Oxygen Delivery Me thod 08/30/22 17:59 MDM - Headache Medical Decision Making 77-year-old female comes in today with persistent headache for the last 4 to 5 days. Patient has had history of headaches in the past. Patient recently had injured her right ankle and has been being treated with that with increased activity outside the home. Daughter believes that she may have just increased her stress and poor control of her ankle pain that has aggravated the headache. Exam noted no focal deficits. Vital signs were normal. Patient appeared nontoxic. Patient moves all extremities well. Differential diagnosis includes but not limited to migraine headache, tension headache, intracranial bleeding, malingering,. Patient's laboratory values were unremarkable. CT of the head noted no intracranial bleeding. Patient was medicated first with Depakote 500 mg IV, Zofran 4 mg, 50 mg of diphenhydramine, and 6 mg of dexamethasone with 1000 mg of IV acetaminophen. Patient did have some improvement of pain from 10 to a 7 but had considerable discomfort. Patient then was given 4 mg of morphine. After the morphine patient did have increased improvement of symptoms and felt comfortable to go home. Family agreed with plan for home and follow-up with primary care return to the ER for new concerns. Lab Data 08/30/22 15:16 08/30/22 15:[address] 08/30/22 15:04 IMPRESSION: No acute intracranial abnormality. Chronic microvascular ischemic changes. Laboratory Results WBC 9.2 10^3/uL (4.0-10.0) 08/30/22 15:16 RBC 4.29 10^6/uL (4.1-5.3) 08/30/22 15:16 Hgb 14.3 g/dL (11.5-15.3) 08/30/22 15:16 Hct 42.7 % (37.0-47.0) 08/30/22 15:16 MCV 99.5 fl (81-99) H 08/30/22 15:16 MCH 33.3 pg (28.0-34.0) 08/30/22 15:16 MCHC 33.5 g/dL (30.0-36.0) 08/30/22 15:16 RDW 12.6 % (12.1-15.1) 08/30/22 15:16 Plt Count 387 10^3/cmm (130-400) 08/30/22 15:16 MPV 8.8 fL (7.4-10.4) 08/30/22 15:16 Neut % (Auto) 84.1 % 08/30/22 15:16 Lymph % (Auto) 6.3 % 08/30/22 15:16 [place] % (Auto) 8.8 % 08/30/22 15:16 Eos % (Auto) 0.2 % 08/30/22 15:16 Baso % (Auto) 0.4 % 08/30/22 15:16 Neut # (Auto) 7.75 10^3/uL (1.8-7.7) H 08/30/22 15:16 Lymph # (Auto) 0.6 10^3/uL (0.8-4.8) L 08/30/22 15:16 [place] # (Auto) 0.8 10^3/uL (0.2-0.9) 08/30/22 15:16 Eos # (Auto) 0.0 10^3/uL (0.0-0.8) 08/30/22 15:16 Baso # (Auto) 0.0 10^3/uL (0.0-0.1) 08/30/22 15:16 Nucleated RBC % (auto) 0 % 08/30/22 15:16 Nucleated RBCs # 0.0 /100WBC 08/30/22 15:16 Sodium 136 mmol/L (136-145) 08/30/22 15:16 Potassium 3.8 mmol/L (3.5-5.1) 08/30/22 15:16 Chloride 95 mmol/L (98-107) L 08/30/22 15:16 Carbon Dioxide 25 mmol/L (22-29) 08/30/22 15:16 Anion Gap 19.8 (5-19) H 08/30/22 15:16 BUN 20 mg/dL (8-23) 08/30/22 15:16 Creatinine 0.8 mg/dL (0.5-0.9) 08/30/22 15:16 GFR Calculation Not Reportable 08/30/22 15:16 Glucose 168 mg/dL (65-115) H 08/30/22 15:16 Calculated Osmolality 288 mOsm/kg (285-295) 08/30/22 15:16 Calcium 9.4 mg/dL (8.5-10.5) 08/30/22 15:16 Total Bilirubin 0.5 mg/dL (0.15-1.2) 08/30/22 15:16 AST 18 U/L (0-32) 08/30/22 15:16 ALT 17 U/L (0-33) 08/30/22 15:16 Alkaline Phosphatase 86 U/L (35-105) 08/30/22 15:16 Total Protein 7.9 g/dL (6.6-8.7) 08/30/22 15:16 Albumin 4.4 g/dL (3.5-5.2) 08/30/22 15:16 Globulin 3.5 g/dL (1.3-4.6) 08/30/22 15:16 Discharge Plan Discharge Patient Disposition: Home Clinical Impression: Headache Qualifiers: Headache type: unspecified Headache chronicity pattern: unspecified pattern Intractability: not intractable Qualified Code(s): R51.9 - Headache, unspecified Condition: Stable Prescriptions: No Action ondansetron HCl 4 mg tablet 4 mg PO Q6H PRN (Reason: nausea and vomiting) Qty: 30 1RF Rx Instructions: for nausea cyclobenzaprine 5 mg tablet 5 mg PO TID PRN (Reason: muscle spasm) Qty: 20 1RF tramadol 50 mg tablet 50 mg PO TID Qty: 90 5RF zolpidem 10 mg tablet 5 - 10 mg PO DAILY Qty: 30 5RF hydrochlorothiazide 25 mg tablet 12.5 mg PO DAILY methadone 5 mg tablet 5 mg PO DAILY acetaminophen [Tylenol Ex Str Arthritis Pain] 500 mg Tablet 500 mg PO QID PRN (Reason: Pain) Women's 50 Plus Multivitamin 400 mcg-500 mg calcium-20 mcg Tablet 1 tab PO DAILY Discharge Orders: Discharge ED (Routine); Ordered 08/30/22 Ordered By: Parveen Chavarria Referrals: Krishna Last, [Primary Care Provider] - Discharge Diet: Usual diet Discharge Activity: Increase activity as tolerated Patient Instructions: Opioid Safety, Pain Management Activity Restrictions/Additional Instructions: Home and rest. Continue with routine medications as directed. Follow-up with primary care in 2 to 3 days for recheck. Return to ED for new concerns. Sign Out Sign Out Data: Patient Sign Out occurred on 08/30/22 at 17:13. Patient's care was discussed, and care was transferred from to Parveen Chavarria. Coding Level of Care Code ED Hand Compositor for Angel Chacon
[2022-08-30] MEDS: sodium chloride 0.9% 1,000 ML 999 ML IV (15:23)
[2022-08-30] MEDS: acetaminophen 1,000 MG/100 ML PIGGYBACK 400 MG IV (15:24)
[2022-08-30 15:25] LABS: Basophils % 0.4 %; Eosinophils % 0.2 %; Hematocrit 42.7 % (37.0-47.0); Hemoglobin 14.3 g/dL (11.5-15.3); Lymphocytes # 0.6 10^3/uL (0.8-4.8); Lymphocytes % 6.3 %; Mean Corpuscular HGB Conc 33.5 g/dL (30.0-36.0); Mean Corpuscular Hemoglobin 33.3 pg (28.0-34.0); Mean Corpuscular Volume 99.5 fl (81-99); Mean Platelet Volume 8.8 fL (7.4-10.4); Monocytes # 0.8 10^3/uL (0.2-0.9); Monocytes % 8.8 %; Neutrophils # 7.75 10^3/uL (1.8-7.7); Neutrophils % 84.1 %; Nucleated Red Blood Cells % 0 %; Platelet Count 387 10^3/cmm (130-400); Red Blood Count 4.29 10^6/uL (4.1-5.3); Red Cell Distribution Width 12.6 % (12.1-15.1); White Blood Count 9.2 10^3/uL (4.0-10.0)
[2022-08-30] MEDS: ondansetron 2 mg/ML SDV 2 mL 4 MG IVP (15:25)
[2022-08-30] MEDS: dexamethasone 10 mg/mL INJ 6 MG IV (15:25)
[2022-08-30] MEDS: diphenhydrAMINE 50 mg/mL SDV 1mL IVP (15:26)
[2022-08-30 15:44] LABS: Alanine Aminotransferase 17 U/L (0-33); Albumin Level 4.4 g/dL (3.5-5.2); Alkaline Phosphatase 86 U/L (35-105); Anion Gap 19.8 (5-19); Aspartate Amino Transferase 18 U/L (0-32); Blood Urea Nitrogen 20 mg/dL (8-23); Calcium 9.4 mg/dL (8.5-10.5); Carbon Dioxide 25 mmol/L (22-29); Chloride 95 mmol/L (98-107); Creatinine Clr Calc Pharmacy 60.8748; Globulin 3.5 g/dL (1.3-4.6); Glucose 168 mg/dL (65-115); Osmolality Calculated 288 mOsm/kg (285-295); Potassium 3.8 mmol/L (3.5-5.1); Sodium 136 mmol/L (136-145); Total Bilirubin 0.5 mg/dL (0.15-1.2); Total Protein 7.9 g/dL (6.6-8.7)
[2022-08-30] MEDS: valproic acid inj 500 MG in sodium chloride 0.9% 50 ML 55 MG IV (16:41)
[2022-08-30 17:19] VITALS: RESP 19
[2022-08-30] MEDS: morphine 4 mg/mL SDV 1 mL IVP (17:19)
[2022-08-30 17:59] VITALS: BP 120/60; PULSE 86; RESP 15; O2SAT 93
== END 2022-08-30 18:14 | disposition home or self-care (01) ==
PROVIDERS: Physician Assistant; Emergency Provider Nurse Practitioner Family; PCP Family Medicine
DX: R51.9 Headache, unspecified (principal); Z79.891 Long term (current) use of opiate analgesic
CPT/HCPCS: 70450; 80053; 85025; 96365; 96367; 96375; 99285; J0131; J1100; J1200; J2270; J2405; J3490; J7030

== ENCOUNTER 2022-09-04 15:01 | Outpatient (CLI) | payer MEDICARE, SELFPAY | END 2022-09-04 15:02 | disposition home or self-care (01) | LOC: SPT 15:02 | PROVIDERS: PCP Family Medicine; Visit Provider Podiatrist Foot & Ankle Surgery | DX: Z46.89 Encounter for fitting and adjustment of other specified devices (principal); S82.891D Other fracture of right lower leg, subsequent encounter for closed fracture with routine healing; X58.XXXD Exposure to other specified factors, subsequent encounter | CPT/HCPCS: 97760; 99204; L4361 ==

== ENCOUNTER → 2022-09-18 09:32 | Outpatient (BNVA) | payer MEDICARE, SELFPAY | PROVIDERS: PCP Family Medicine; Visit Provider Podiatrist Foot & Ankle Surgery | DX: S82.401A Unspecified fracture of shaft of right fibula, initial encounter for closed fracture (principal); X58.XXXA Exposure to other specified factors, initial encounter; M85.871 Other specified disorders of bone density and structure, right ankle and foot | CPT/HCPCS: 73610 ==

== ENCOUNTER 2022-09-18 11:28 | Outpatient (CLI) | payer MEDICARE, SELFPAY | END 2022-09-18 11:29 | disposition home or self-care (01) | LOC: SPT 11:29 | PROVIDERS: PCP Family Medicine; Visit Provider Podiatrist Foot & Ankle Surgery | DX: Z46.89 Encounter for fitting and adjustment of other specified devices (principal); S82.891D Other fracture of right lower leg, subsequent encounter for closed fracture with routine healing; X58.XXXD Exposure to other specified factors, subsequent encounter | CPT/HCPCS: 97760; 99214; L1902 ==

== ENCOUNTER → 2022-10-02 09:56 | Outpatient (BNVA) | payer MEDICARE, SELFPAY | PROVIDERS: PCP Family Medicine; Visit Provider Podiatrist Foot & Ankle Surgery | DX: S82.401A Unspecified fracture of shaft of right fibula, initial encounter for closed fracture; X58.XXXA Exposure to other specified factors, initial encounter; M85.871 Other specified disorders of bone density and structure, right ankle and foot | CPT/HCPCS: 73610; 99213 ==

== ENCOUNTER 2022-12-18 21:40 | Emergency (ER) | payer MEDICARE, SELFPAY ==
[2022-12-18 21:42] VITALS: BP 133/76; PULSE 95; RESP 15; TEMP 36.6; O2SAT 100
--- NOTE | 2022-12-18 21:51 | ED_ITS ---
HPI - Fall General: Chief Complaint: Fall Stated Complaint: fall, left rib and right leg pain Time Seen by Provider: 12/18/22 21:50 History of Present Illness: 77-year-old female comes in today with injury to the right lower extremity and left ribs. Patient reports about 5:00 this afternoon she was attempting to ascend the stairs onto her porch when she missed her step causing her to fall forward. Patient was unable to bear full weight to the right extremity at the time and throughout the evening the pain worsened. Patient reports pain to the knee and right hip area. Patient is unable to straighten the leg due to pain and discomfort. Patient also reports left anterior rib pain. Patient does admit to hitting her head but denies severe headache or loss of consciousness. Patient denies heart disease but reports a history of fibromyalgia. Associated symptoms-after fall: Denies chest pain or headache(s) Review of Systems General: Reports: 10 or more systems reviewed and unremarkable except in HPI and below Const: Denies: fever(s) Card: Denies: chest pain GI: Denies: nausea or vomiting : Denies: difficulty voiding Musc: Reports: back pain, extremity pain and other (Left anterior rib pain) Skin/Breast: Denies: rash Neuro: Denies: headache(s) PFSH ED PFSH: Medical History Anxiety Arthritis Fibromyalgia Insomnia Recurrent cystitis Stress Surgical History Hx of appendectomy Hx of cholecystectomy Hx of hysterectomy Family History Mother Diabetes Chronic kidney disease (CKD) Social History Smoking and tobacco status: never smoked Alcohol intake: never Marital status: Current occupational status: employed Physical Exam Const: COMMON NORMALS: alert HENMT: COMMON NORMALS: normocephalic and atraumatic HEAD & SCALP: normocephalic and atraumatic MOUTH: Normal oral and palatal mucosa present Neck/C-Spine: COMMON NORMALS: full ROM CERVICAL SPINE: No Cervical spine tenderness Chest: CHEST: Yes tenderness rib (Left lower anterior) Resp: COMMON NORMALS: normal respiratory effort and clear to auscultation bilaterally AUSCULTATION: clear to auscultation bilaterally Cardio: COMMON NORMALS: regular rate and regular rhythm RATE: regular rate RHYTHM: regular rhythm GI: COMMON NORMALS: non-tender Back/Pelvis: LUMBAR SPINE/LOWER BACK: Yes lumbar spinal tenderness Lumbar spinal tenderness location: L4 (Mild tenderness) Extremity: RIGHT LOWER EXTREMITY: Yes hip joint (Inguinal tenderness decreased range of motion) and Yes knee joint (Joint line tenderness decreased range of motion) Neuro: SENSORIUM/ORIENTATION: Yes alert Skin: COMMON NORMALS: turgor normal GENERAL SKIN EXAM: turgor normal Course Vital Signs: Vital signs: Vital Signs Temperature 97.8 F 12/18/22 21:42 Pulse Rate 83 12/19/22 00:01 Respiratory Rate 16 12/19/22 00:01 Blood Pressure 162/98 12/19/22 00:01 Pulse Oximetry 95 12/18/22 22:06 Oxygen Delivery Me thod Room Air 12/18/22 21:42 MDM - Fall Medical Decision Making Patient comes in for evaluation of injuries after a fall on the steps. Patient reports left rib pain and right knee pain. Patient has swelling and tenderness to the right knee joint. Patient has anterior left rib pain. Abdomen soft nontender. Skin is warm and dry. No signs of injury is noted to the scalp. Patient moves neck well. Differential diagnosis includes not limited to fracture, contusions, sprain. X-ray of the femur and the right knee indicated no fractures but significant joint degeneration in the right knee cannot rule out fracture entirely. CT of the cervical spine and CT of the head was unremarkable. CT of the chest and abdomen pelvis noted no acute fractures except for 1 nondisplaced sixth rib fracture on the left side. Reviewed exam [facility] patient recommended knee immobilizer and follow-up with orthopedic surgeon for further evaluation and treatment. Patient reported understanding agreed to plan. Lab Data 12/18/22 22:03 12/18/22 22:03 Radiology Impressions Cervical Spine CT 12/18/22 21:56 IMPRESSION: 1. No fracture is identified. 2. Degenerative changes. Chest/Abdomen/Pelvis CT 12/18/22 21:56 IMPRESSION: 1. Nondisplaced left 6th rib fracture. No acute thoracic injury otherwise. 2. Coronary calcification. IMPRESSION: 1. Chronic vertebral/osseous findings as above. No acute abdominopelvic traumatic injury otherwise. Somewhat limited exam due to lack of contrast. 2. Colonic diverticulosis. Head CT 12/18/22 21:56 IMPRESSION: No acute intracranial finding. Femur X-Ray 12/18/22 21:58 IMPRESSION: No obvious acute fracture however there is knee joint effusion. Correlation with views of the knee should be considered. Knee X-Ray 12/18/22 21:58 IMPRESSION: Large knee joint effusion with probable lipohemarthrosis. Although no obvious acute fracture is visualized, and occult fracture may be present. See discussion above. Laboratory Results WBC 9.7 10^3/uL (4.0-10.0) 12/18/22 22:03 RBC 4.07 10^6/uL (4.1-5.3) L 12/18/22 22:03 Hgb 13.6 g/dL (11.5-15.3) 12/18/22 22:03 Hct 39.8 % (37.0-47.0) 12/18/22 22:03 MCV 97.8 fl (81-99) 12/18/22 22:03 MCH 33.4 pg (28.0-34.0) 12/18/22 22:03 MCHC 34.2 g/dL (30.0-36.0) 12/18/22 22:03 RDW 11.9 % (12.1-15.1) L 12/18/22 22:03 Plt Count 266 10^3/cmm (130-400) 12/18/22 22:03 MPV 9.0 fL (7.4-10.4) 12/18/22 22:03 Neut % (Auto) 59.5 % 12/18/22 22:03 Lymph % (Auto) 26.7 % 12/18/22 22:03 [place] % (Auto) 10.1 % 12/18/22 22:03 Eos % (Auto) 2.8 % 12/18/22 22:03 Baso % (Auto) 0.6 % 12/18/22 22:03 Neut # (Auto) 5.79 10^3/uL (1.8-7.7) 12/18/22 22:03 Lymph # (Auto) 2.6 10^3/uL (0.8-4.8) 12/18/22 22:03 [place] # (Auto) 1.0 10^3/uL (0.2-0.9) H 12/18/22 22:03 Eos # (Auto) 0.3 10^3/uL (0.0-0.8) 12/18/22 22:03 Baso # (Auto) 0.1 10^3/uL (0.0-0.1) 12/18/22 22:03 Nucleated RBC % (auto) 0 % 12/18/22 22:03 Nucleated RBCs # 0.0 /100WBC 12/18/22 22:03 Sodium 139 mmol/L (136-145) 12/18/22 22:03 Potassium 3.4 mmol/L (3.5-5.1) L 12/18/22 22:03 Chloride 99 mmol/L (98-107) 12/18/22 22:03 Carbon Dioxide 28 mmol/L (22-29) 12/18/22 22:03 Anion Gap 15.4 (5-19) 12/18/22 22:03 BUN 14 mg/dL (8-23) 12/18/22 22:03 Creatinine 0.7 mg/dL (0.5-0.9) 12/18/22 22:03 GFR Calculation Not Reportable 12/18/22 22:03 Glucose 101 mg/dL (65-115) 12/18/22 22:03 Calculated Osmolality 289 mOsm/kg (285-295) 12/18/22 22:03 Calcium 9.2 mg/dL (8.5-10.5) 12/18/22 22:03 Total Bilirubin 0.3 mg/dL (0.15-1.2) 12/18/22 22:03 AST 23 U/L (0-32) 12/18/22 22:03 ALT 21 U/L (0-33) 12/18/22 22:03 Alkaline Phosphatase 77 U/L (35-105) 12/18/22 22:03 Total Protein 7.2 g/dL (6.6-8.7) 12/18/22 22:03 Albumin 4.1 g/dL (3.5-5.2) 12/18/22 22:03 Globulin 3.1 g/dL (1.3-4.6) 12/18/22 22:03 Discharge Plan Discharge Patient Disposition: Home Clinical Impression: Fall on stairs Fracture of rib Qualifiers: Encounter type: initial encounter Rib fracture type: single rib Fracture type: closed Laterality: left Qualified Code(s): S22.32XA - Fracture of one rib, left side, initial encounter for closed fracture Knee effusion Qualifiers: Laterality: right Qualified Code(s): M25.461 - Effusion, right knee Condition: Stable Prescriptions: New hydrocodone-acetaminophen 5-325 mg tablet 1 tab PO Q8H PRN (Reason: pain (scale score 7-10)) Qty: 10 0RF No Action (DME) cam boot See Rx Instructions .Route .MEDSUPPLY Qty: 1 0RF Rx Instructions: As directed (DME) ASO brace See Rx Instructions .Route .MEDSUPPLY Qty: 1 0RF Rx Instructions: As directed ondansetron HCl 4 mg tablet 4 mg PO Q6H PRN (Reason: nausea and vomiting) Qty: 30 1RF Rx Instructions: for nausea alendronate 70 mg tablet 70 mg PO .weekly Qty: 90 3RF lorazepam 0.5 mg tablet 0.5 mg PO TID PRN (Reason: anxiety/nervousness/sleep) Qty: 90 3RF cyclobenzaprine 5 mg tablet 5 mg PO TID PRN (Reason: muscle spasm) Qty: 20 1RF tramadol 50 mg tablet 50 mg PO TID Qty: 90 5RF methadone 5 mg tablet 5 mg PO DAILY 30 Days Qty: 30 0RF hydrochlorothiazide 25 mg tablet 12.5 mg PO DAILY acetaminophen [Tylenol Ex Str Arthritis Pain] 500 mg Tablet 500 mg PO QID PRN (Reason: Pain) Women's 50 Plus Multivitamin 400 mcg-500 mg calcium-20 mcg Tablet 1 tab PO DAILY Discharge Orders: Discharge ED (Routine); Ordered 12/18/22 Ordered By: Parveen Chavarria Referrals: Krishna Last DO [Primary Care Provider] - Discharge Diet: Usual diet Discharge Activity: Increase activity as tolerated Patient Instructions: Musculoskeletal Pain (ED), Opioid Safety Activity Restrictions/Additional Instructions: Use knee immobilizer for protection of the joint. Use routine medications to control pain. Use hydrocodone for severe pain. Follow-up with primary care for further instruction. Case management will contact you regarding follow-up appointment with orthopedic surgeon for further evaluation and treatment of knee. Coding Level of Care Code ED Operations Lead for Angel Chacon
--- NOTE | 2022-12-18 21:56 | CTR_ITS ---
PROCEDURE INFORMATION: Exam: CT Head Without Contrast Exam date and time: 12/18/2022 10:25 PM Age: 77 years old Clinical indication: Injury or trauma; Blunt trauma (contusions or hematomas); Patient HX: Tripped walking up stairs falling forward onto steps. Frontal head strike. C/O left rib, lower back, and RT hip pain. ; Additional info: Elderly trauma TECHNIQUE: Imaging protocol: Computed tomography of the head without contrast. Radiation optimization: All CT scans at this facility use at least one of these dose optimization techniques: automated exposure control; mA and/or kV adjustment per patient size (includes targeted exams where dose is matched to clinical indication); or iterative reconstruction. REPORTING DATA: Count of CT and Cardiac NM exams in prior 12 months: This patient has received 2 known CTs and 0 known cardiac nuclear medicine studies in the 12 months prior to the current study. COMPARISON: CT head wo con* [id number] 08/30/2022 4:12 PM RADIATION DOSE METRICS: Total DLP (mGy-cm): 818.28 FINDINGS: Brain: There is moderate cortical atrophy. Low-density changes in the white matter are consistent with nonspecific small vessel chronic ischemic change. There is no intracranial mass, hemorrhage or edema. Cerebral ventricles: No ventriculomegaly. Paranasal sinuses: Visualized sinuses are unremarkable. No fluid levels. Mastoid air cells: Visualized mastoid air cells are well aerated. Bones/joints: Unremarkable. No acute fracture. Soft tissues: Unremarkable. CT/CT head wo con* [id number] IMPRESSION: No acute intracranial finding.
--- NOTE | 2022-12-18 21:56 | CTR_ITS ---
PROCEDURE INFORMATION: Exam: CT Chest Without Contrast; Diagnostic Exam date and time: 12/18/2022 10:33 PM Age: 77 years old Clinical indication: Injury or trauma; Blunt trauma (contusions or hematomas); Prior surgery; Surgery date: 6+ months; Surgery type: Gb. Appy. Hysterectomy. Patient HX: Tripped walking up stairs falling forward onto steps. Frontal head strike. C/O left rib, lower back, and RT hip pain. ; Additional info: Elderly trauma, left rib pain, lumbar pain, right hip pain TECHNIQUE: Imaging protocol: Diagnostic computed tomography of the chest without contrast. Radiation optimization: All CT scans at this facility use at least one of these dose optimization techniques: automated exposure control; mA and/or kV adjustment per patient size (includes targeted exams where dose is matched to clinical indication); or iterative reconstruction. REPORTING DATA: Count of CT and Cardiac NM exams in prior 12 months: This patient has received 2 known CTs and 0 known cardiac nuclear medicine studies in the 12 months prior to the current study. COMPARISON: CR XR chest 1V portable [id number] 04/19/2020 1:53 PM RADIATION DOSE METRICS: Total DLP (mGy-cm): 555.13 FINDINGS: Lungs: Posterior dependent changes are noted in both lungs. No acute pulmonary findings otherwise. Pleural spaces: Unremarkable. No pneumothorax. No pleural effusion. Heart: Normal heart size with coronary calcification. Lymph nodes: No enlarged lymph nodes. Vasculature: Unremarkable. No aortic aneurysm. Bones/joints: Osteopenia. Nondisplaced anterolateral left 6th rib fracture. Soft tissues: No acute findings. PROCEDURE INFORMATION: Exam: CT Abdomen And Pelvis Without Contrast Exam date and time: 12/18/2022 10:33 PM Age: 77 years old Clinical indication: Injury or trauma; Blunt trauma (contusions or hematomas); Prior surgery; Surgery date: 6+ months; Surgery type: Gb. Appy. Hysterectomy. Patient HX: Tripped walking up stairs falling forward onto steps. Frontal head strike. C/O left rib, lower back, and RT hip pain. ; Additional info: Elderly trauma, left rib pain, lumbar pain, right hip pain TECHNIQUE: Imaging protocol: Computed tomography of the abdomen and pelvis without contrast. Radiation optimization: All CT scans at this facility use at least one of these dose optimization techniques: automated exposure control; mA and/or kV adjustment per patient size (includes targeted exams where dose is matched to clinical indication); or iterative reconstruction. REPORTING DATA: Count of CT and Cardiac NM exams in prior 12 months: This patient has received 2 known CTs and 0 known cardiac nuclear medicine studies in the 12 months prior to the current study. COMPARISON: CT abdomen pelvis w con* [id number] 03/04/2022 7:16 PM RADIATION DOSE METRICS: Total DLP (mGy-cm): 555.13 FINDINGS: Liver: Normal. No mass. Gallbladder and bile ducts: Cholecystectomy clips. Pancreas: Normal. No ductal dilation. Spleen: Normal. No splenomegaly. Adrenal glands: Normal. No mass. Kidneys and ureters: No obstructing calculus. No hydronephrosis. Stomach and bowel: Moderate stool burden. Colonic diverticulosis. Appendix: Prior appendectomy. Intraperitoneal space: Unremarkable. No free air. No significant fluid collection. Vasculature: No abdominal aortic aneurysm. Lymph nodes: No enlarged lymph nodes. Urinary bladder: Unremarkable as visualized. Reproductive: Unremarkable as visualized. Bones/joints: Osteopenia. Multilevel vertebral disc degeneration and endplate osteophytes. Stable chronic [id number]-[id number]-erfanimm L1 and L3 superior endplate compression deformities No acute osseous findings otherwise. Soft tissues: No acute findings. CT/[place] [id number] IMPRESSION: 1. Nondisplaced left 6th rib fracture. No acute thoracic injury otherwise. 2. Coronary calcification. IMPRESSION: 1. Chronic vertebral/osseous findings as above. No acute abdominopelvic traumatic injury otherwise. Somewhat limited exam due to lack of contrast. 2. Colonic diverticulosis.
--- NOTE | 2022-12-18 21:56 | CTR_ITS ---
PROCEDURE INFORMATION: Exam: CT Cervical Spine Without Contrast Exam date and time: 12/18/2022 10:30 PM Age: 77 years old Clinical indication: Injury or trauma; Blunt trauma; Patient HX: Tripped walking up stairs falling forward onto steps. Frontal head strike. C/O left rib, lower back, and RT hip pain. ; Additional info: Elderly trauma TECHNIQUE: Imaging protocol: Computed tomography of the cervical spine without contrast. Radiation optimization: All CT scans at this facility use at least one of these dose optimization techniques: automated exposure control; mA and/or kV adjustment per patient size (includes targeted exams where dose is matched to clinical indication); or iterative reconstruction. REPORTING DATA: Count of CT and Cardiac NM exams in prior 12 months: This patient has received 2 known CTs and 0 known cardiac nuclear medicine studies in the 12 months prior to the current study. COMPARISON: CT head wo con* [id number] 12/18/2022 10:25 PM RADIATION DOSE METRICS: Total DLP (mGy-cm): 129.87 FINDINGS: Bones/joints: There is narrowing of the C4-C5, C5-C6 and C6-C7 disc spaces and also at C7-T1 with prominent anterior osteophytes. There is uncovertebral hypertrophy bilaterally at these levels also causing mild to moderate foraminal narrowing bilaterally. Degenerative changes are present in facet joints bilaterally at multiple levels. There is degenerative change in the anterior atlantoaxial joint. No fracture is identified. Lungs: Lung apices are normal. Soft tissues: Prevertebral soft tissues are unremarkable. CT/CT cervical spin wo con* [id number] IMPRESSION: 1. No fracture is identified. 2. Degenerative changes.
--- NOTE | 2022-12-18 21:58 | XRR_ITS ---
PROCEDURE INFORMATION: Exam: XR Right Knee Exam date and time: 12/18/2022 10:04 PM Age: 77 years old Clinical indication: Pain; Knee; Right; Additional info: Injury TECHNIQUE: Imaging protocol: Radiologic exam of the right knee. Views: 3 views. COMPARISON: No relevant prior studies available. FINDINGS: Bones/joints: Large knee joint effusion with probable lipohemarthrosis raising possibility of acute fracture however no obvious acute fracture line or cortical displacement is identified. There is osteopenia which limits detection of nondisplaced acute osseous injury. Additional exam such as MRI or CT may be considered. There is moderate-severe tricompartmental knee joint osteoarthritis with chondrocalcinosis. Soft tissues: Normal. Other findings: Three nonweightbearing views submitted. XR/XR knee RT 3V* [id number] IMPRESSION: Large knee joint effusion with probable lipohemarthrosis. Although no obvious acute fracture is visualized, and occult fracture may be present. See discussion above.
--- NOTE | 2022-12-18 21:58 | XRR_ITS ---
PROCEDURE INFORMATION: Exam: XR Right Femur Exam date and time: 12/18/2022 10:04 PM Age: 77 years old Clinical indication: Pain; Thigh; Right; Additional info: Fall injury TECHNIQUE: Imaging protocol: Radiologic exam of the right femur. Views: 2 views. COMPARISON: CT abdomen pelvis w con* [id number] 03/04/2022 7:16 PM FINDINGS: Bones/joints: Mild osteopenia limiting assessment of nondisplaced acute osseous injury. Otherwise no obvious acute fracture dislocation. Minimal acetabular spurring. Mild-moderate tricompartment knee joint osteoarthritis is present, with probable chondrocalcinosis. Probable large knee joint effusion. Dedicated knee exam should be considered. Soft tissues: Unremarkable. XR/XR femur RT min 2V* [id number] IMPRESSION: No obvious acute fracture however there is knee joint effusion. Correlation with views of the knee should be considered.
[2022-12-18 22:06] VITALS: BP 158/94; PULSE 83; RESP 16; O2SAT 95
[2022-12-18] MEDS: ondansetron 2 mg/ML SDV 2 mL 4 MG IVP (22:13)
[2022-12-18 22:14] VITALS: RESP 16
[2022-12-18 22:14] LABS: Basophils # 0.1 10^3/uL (0.0-0.1); Basophils % 0.6 %; Eosinophils # 0.3 10^3/uL (0.0-0.8); Eosinophils % 2.8 %; Hematocrit 39.8 % (37.0-47.0); Hemoglobin 13.6 g/dL (11.5-15.3); Lymphocytes # 2.6 10^3/uL (0.8-4.8); Lymphocytes % 26.7 %; Mean Corpuscular HGB Conc 34.2 g/dL (30.0-36.0); Mean Corpuscular Hemoglobin 33.4 pg (28.0-34.0); Mean Corpuscular Volume 97.8 fl (81-99); Monocytes % 10.1 %; Neutrophils # 5.79 10^3/uL (1.8-7.7); Neutrophils % 59.5 %; Nucleated Red Blood Cells % 0 %; Platelet Count 266 10^3/cmm (130-400); Red Blood Count 4.07 10^6/uL (4.1-5.3); Red Cell Distribution Width 11.9 % (12.1-15.1); White Blood Count 9.7 10^3/uL (4.0-10.0)
[2022-12-18] MEDS: fentaNYL 50 mcg/mL INJ 2mL IVP (22:14)
--- NOTE | 2022-12-18 22:14 | ECG_ITS ---
[facility] Test Date: 2022-12-18 Pat Name: Guillermina Camara Department: Room: Gender: Female Concrete Handler: : 1945 Requested By: Parveen Vázquez Order Number: [id number] Tucker MD: Himanshu Garcia M.D. Measurements Intervals [place] Rate: 83 P: 42 MT: 182 QRS: -9 QRSD: 101 T: 70 QT: 419 QTc: 493 Interpretive Statements SINUS RHYTHM MODERATE VOLTAGE CRITERIA FOR LVH, CONSIDER NORMAL VARIANT [MEETS CRITERIA IN ONE OF: R(aVL), S(V1), R(V5), R(V5/V6)+S(V1)] POSSIBLE SEPTAL MYOCARDIAL INFARCTION , OF INDETERMINATE AGE [30 ms Q WAVE IN V1/V2] Compared to ECG 01/09/2018 12:01:24 Myocardial infarct finding now present Electronically Signed On 12-19-2022 15:41:10 CDT by Himanshu Garcia M.D. [id number]
[2022-12-18 22:28] LABS: Alanine Aminotransferase 21 U/L (0-33); Albumin Level 4.1 g/dL (3.5-5.2); Alkaline Phosphatase 77 U/L (35-105); Anion Gap 15.4 (5-19); Aspartate Amino Transferase 23 U/L (0-32); Blood Urea Nitrogen 14 mg/dL (8-23); Calcium 9.2 mg/dL (8.5-10.5); Carbon Dioxide 28 mmol/L (22-29); Chloride 99 mmol/L (98-107); Globulin 3.1 g/dL (1.3-4.6); Glucose 101 mg/dL (65-115); Osmolality Calculated 289 mOsm/kg (285-295); Potassium 3.4 mmol/L (3.5-5.1); Sodium 139 mmol/L (136-145); Total Bilirubin 0.3 mg/dL (0.15-1.2); Total Protein 7.2 g/dL (6.6-8.7)
[2022-12-19 00:01] VITALS: BP 162/98; PULSE 83; RESP 16
[2022-12-19] MEDS: HYDROcodone-acetaminophen 5-325 mg Tablet 1 TAB PO (00:02)
[2022-12-19] MEDS: ketorolac 30 mg/mL INJ 15 MG IVP (00:02)
--- NOTE | 2022-12-19 07:56 | DCPLANNER ---
Addendum entered by Lauren Lopez 12/27/22 11:35: Patient had a follow up appointment scheduled with ortho - patient did attend appointment Addendum entered by Lauren Lopez 12/19/22 11:32: Patient has a follow up appointment scheduled for Tuesday, December 27, 2022 at 11:[address] Conde at ortho. Original Note: mutual fund manager had message to schedule a follow up appointment for patient with ortho. mutual fund manager sent patients information to the front office staff at ortho. Patients information will be printed and reviewed. Clinic will call patient with appointment information.
== END 2022-12-19 00:19 | disposition home or self-care (01) ==
PROVIDERS: Emergency Provider Nurse Practitioner Family; PCP Family Medicine
DX: M25.461 Effusion, right knee (principal); S22.32XA Fracture of one rib, left side, initial encounter for closed fracture; Z79.891 Long term (current) use of opiate analgesic; W10.8XXA Fall (on) (from) other stairs and steps, initial encounter; M25.561 Pain in right knee
CPT/HCPCS: 29530; 70450; 71250; 72125; 73552; 73562; 74176; 80053; 85025; 93005; 96372; 96374; 96375; 99284; 99285; J1885; J2270; J2360; J2405; J3010

== ENCOUNTER 2022-12-19 11:18 | Emergency (ER) | payer MEDICARE, SELFPAY ==
[2022-12-19 11:26] VITALS: BP 140/70; PULSE 99; RESP 20; TEMP 37.3; O2SAT 99; BMI 23.1
--- NOTE | 2022-12-19 12:06 | ED_ITS ---
Documented by User: CHAPARRO Dejesus 12/20/22 12:20 HPI - Fall General: Chief Complaint: Fall Stated Complaint: knee and rib pain Time Seen by Provider: 12/19/22 11:30 History of Present Illness: Patient is a 77-year-old female comes to the ED with left rib and right knee pain. Patient was seen here in the ED yesterday December [address] of head, cervical spine, chest/abdomen/pelvis done as well. Imaging found 1 nondisplaced rib fracture. X-ray of right knee showed no obvious signs of fracture but did note knee joint effusion. Patient was put in a knee immobilizer and was discharged home with prescription for hydrocodone. Patient denies any reinjury or falls since being discharged from emergency department yesterday. She rates her pain in her knee a 10 out of 10 and most of her pain is in her right knee. She has an appointment with the orthopedic doctor on Friday, December 27. Left rib pain from rib fracture is rated mild to moderate. Denies any fevers or cough. Associated symptoms-after fall: Denies abdominal pain, chest pain, headache(s), hematuria or neck pain Review of Systems Const: Denies: fever(s), chills or fatigue Eyes: Denies: change in vision or eye discomfort ENMT: Denies: throat pain, odynophagia, nasal discharge or nasal congestion Card: Denies: chest pain, palpitations, edema, swelling of feet/ankles, dyspnea on exertion or orthopnea Resp: Denies: dyspnea, productive cough or non-productive cough GI: Denies: abdominal pain, nausea, vomiting, diarrhea, constipation or hematochezia : Denies: flank pain, dysuria or hematuria Musc: Reports: extremity pain (Right knee) and limited range of motion (Right knee); Denies: neck pain, back pain or extremity swelling Skin/Breast: Denies: rash or new lesions Neuro: Denies: headache(s), numbness in extremities or weakness in extremities [facility] ED PFSH: Medical History Anxiety Arthritis Fibromyalgia Insomnia Recurrent cystitis Stress Surgical History Hx of appendectomy Hx of cholecystectomy Hx of hysterectomy Family History Mother Diabetes Chronic kidney disease (CKD) Social History Smoking and tobacco status: never smoked Alcohol intake: never Marital status: Current occupational status: employed Physical Exam Const: COMMON NORMALS: patient oriented x3 HENMT: COMMON NORMALS: normocephalic HEAD & SCALP: normocephalic MOUTH: Normal oral and palatal mucosa present THROAT: posterior oropharynx normal and uvula midline Neck/C-Spine: COMMON NORMALS: supple GENERAL: Yes normal visual inspection Resp: COMMON NORMALS: normal respiratory effort, No retractions, No use of accessory muscles and clear to auscultation bilaterally AUSCULTATION: clear to auscultation bilaterally Cardio: COMMON NORMALS: regular rate, regular rhythm, S1 normal heart sound present, S2 normal heart sound present, No gallops present (Cardio), No clicks present (Cardio), No murmurs present (Cardio) and Peripheral pulses 2+ throughout RATE: regular rate RHYTHM: regular rhythm HEART SOUNDS: S1 normal heart sound present and S2 normal heart sound present PERIPHERAL PULSES: Peripheral pulses 2+ throughout GI: COMMON NORMALS: Normal to inspection, nondistended, normoactive bowel sounds present, Soft to palpation, non-tender and no masses PALPATION: Yes Soft to palpation : COMMON NORMALS: Yes no CVA tenderness BLADDER/KIDNEY EXAM: Yes no CVA tenderness Back/Pelvis: COMMON NORMALS: no CVA tenderness Extremity: NARRATIVE EXTREMITY EXAM: Right knee?no visible deformity noted. Some swelling seen and patient has tenderness over anterior patella of knee. Limited range of motion due to pain. Neurovascular intact distally. Neuro: COMMON NORMALS: patient oriented x3 GAIT: Yes Normal gait present Skin: GENERAL SKIN EXAM: dry skin Course Vital Signs: Vital signs: Vital Signs Temperature 99.2 F 12/19/22 11:26 Pulse Rate 99 12/19/22 11:26 Respiratory Rate 18 12/19/22 14:33 Blood Pressure 131/87 12/19/22 14:33 Pulse Oximetry 100 12/19/22 14:33 Oxygen Delivery Me thod Room Air 12/19/22 14:33 MDM - Fall Medical Decision Making Patient is a 77-year-old female comes to the ED with left rib and right knee pain. Patient was seen here in the ED yesterday December [address] of head, cervical spine, chest/abdomen/pelvis done as well. Imaging found 1 nondisplaced rib fracture. X-ray of right knee showed no obvious signs of fracture but did note knee joint effusion. Patient was put in a knee immobilizer and was discharged home with prescription for hydrocodone. Patient denies any reinjury or falls since being discharged from emergency department yesterday. She rates her pain in her knee a 10 out of 10 and most of her pain is in her right knee. She has an appointment with the orthopedic doctor on Friday, December 27. Left rib pain from rib fracture is rated mild to moderate. Denies any fevers or cough.Right knee?no visible deformity noted. Some swelling seen and patient has tenderness over anterior patella of knee. Limited range of motion due to pain. Neurovascular intact distally. Vitals are stable. Patient was given pain meds here in the ED and her pain was controlled. I reviewed the x-ray of her right knee that was done yesterday and it showed a lipohemarthrosis which could be an indicator of a occult fracture, likely in the tibial plateau. Radiologist recommended possible CT for further evaluation. Patient already has an appointment with orthopedic doctor on December 27 and is in a knee immobilizer. I placed an order with case management for patient to be set up with an outpatient CT of right knee for further evaluation of right knee pain and hemarthrosis of knee joint. Patient already has pain meds at home and was told to continue taking them as prescribed. She was told no weightbearing and to wear knee immobilizer until she is seen by Ortho and further treatment is prescribed. Patient had her daughter and son-in-law present and they help take care of patient. they understood and agreed with plan. Discharge Plan Discharge Patient Disposition: Home Clinical Impression: Pain of right knee after injury, Hemarthrosis involving knee joint Condition: Stable Prescriptions: No Action (DME) cam boot See Rx Instructions .Route .MEDSUPPLY Qty: 1 0RF Rx Instructions: As directed (DME) ASO brace See Rx Instructions .Route .MEDSUPPLY Qty: 1 0RF Rx Instructions: As directed ondansetron HCl 4 mg tablet 4 mg PO Q6H PRN (Reason: nausea and vomiting) Qty: 30 1RF Rx Instructions: for nausea alendronate 70 mg tablet 70 mg PO .weekly Qty: 90 3RF lorazepam 0.5 mg tablet 0.5 mg PO TID PRN (Reason: anxiety/nervousness/sleep) Qty: 90 3RF cyclobenzaprine 5 mg tablet 5 mg PO TID PRN (Reason: muscle spasm) Qty: 20 1RF tramadol 50 mg tablet 50 mg PO TID Qty: 90 5RF methadone 5 mg tablet 5 mg PO DAILY 30 Days Qty: 30 0RF hydrochlorothiazide 25 mg tablet 12.5 mg PO DAILY hydrocodone-acetaminophen 5-325 mg tablet 1 tab PO Q8H PRN (Reason: pain (scale score 7-10)) Qty: 10 0RF acetaminophen [Tylenol Ex Str Arthritis Pain] 500 mg Tablet 500 mg PO QID PRN (Reason: Pain) Women's 50 Plus Multivitamin 400 mcg-500 mg calcium-20 mcg Tablet 1 tab PO DAILY Discharge Orders: Discharge ED (Routine); Ordered 12/19/22 Ordered By: Audi Conde Referrals: Krishna Last, DO [Primary Care Provider] - Discharge Diet: Regular Discharge Activity: Limit activity as instructed and Use walker/crutches as instructed Activity Restrictions/Additional Instructions: Follow-up with orthopedic doctor at your scheduled appointment on December 27. Wear knee immobilizer and no weightbearing until cleared by orthopedic doctor. Continue taking all medications as previously prescribed. Case management to be contacted in the next several days to set up an appointment for an outpatient CT of right knee. Return to the ER or your medical provider if condition worsens. Please read and understand discharge instructions. Thank you for choosing [facility] for your healthcare needs today. Please realize this is an emergency room and that we are providing you with a medical screening exam and this may not be complete and all inclusive of all the testing and or work up that you may need to determine your ailment or severity of your illness. It is very important that you follow up as instructed or that you return to the Emergency Department should you have concerns or if your condition changes or worsens in any way. Coding Level of Care Code ED Engineer Conductor for Maryg Fwd Documented by User: Regan Valladares DO 12/20/22 13:02 HPI - Fall General: Chief Complaint: Fall Stated Complaint: knee and rib pain Time Seen by Provider: 12/19/22 11:30 [facility] ED PFSH: Medical History Anxiety Arthritis Fibromyalgia Insomnia Recurrent cystitis Stress Surgical History Hx of appendectomy Hx of cholecystectomy Hx of hysterectomy Family History Mother Diabetes Chronic kidney disease (CKD) Social History Smoking and tobacco status: never smoked Alcohol intake: never Marital status: Current occupational status: employed Course Vital Signs: Vital signs: Vital Signs Temperature 99.2 F 12/19/22 11:26 Pulse Rate 99 12/19/22 11:26 Respiratory Rate 18 12/19/22 14:33 Blood Pressure 131/87 12/19/22 14:33 Pulse Oximetry 100 12/19/22 14:33 Oxygen Delivery Me thod Room Air 12/19/22 14:33 MDM - Fall Medical Decision Making Patient is a 77-year-old female comes to the ED with left rib and right knee pain. Patient was seen here in the ED yesterday December [address] of head, cervical spine, chest/abdomen/pelvis done as well. Imaging found 1 nondisplaced rib fracture. X-ray of right knee showed no obvious signs of fracture but did note knee joint effusion. Patient was put in a knee immobilizer and was discharged home with prescription for hydrocodone. Patient denies any reinjury or falls since being discharged from emergency department yesterday. She rates her pain in her knee a 10 out of 10 and most of her pain is in her right knee. She has an appointment with the orthopedic doctor on Friday, December 27. Left rib pain from rib fracture is rated mild to moderate. Denies any fevers or cough.Right knee?no visible deformity noted. Some swelling seen and patient has tenderness over anterior patella of knee. Limited range of motion due to pain. Neurovascular intact distally. Vitals are stable. Patient was given pain meds here in the ED and her pain was controlled. I reviewed the x-ray of her right knee that was done yesterday and it showed a lipohemarthrosis which could be an indicator of a occult fracture, likely in the tibial plateau. Radiologist recommended possible CT for further evaluation. Patient already has an appointment with orthopedic doctor on December 27 and is in a knee immobilizer. I placed an order with case management for patient to be set up with an outpatient CT of right knee for further evaluation of right knee pain and hemarthrosis of knee joint. Patient already has pain meds at home and was told to continue taking them as prescribed. She was told no weightbearing and to wear knee immobilizer until she is seen by Ortho and further treatment is prescribed. Patient had her daughter and son-in-law present and they help take care of patient. they understood and agreed with plan. Chart reviewed and patient discussed with midlevel. Agree with assessment and plan. Discharge Plan Discharge Patient Disposition: Home Clinical Impression: Pain of right knee after injury, Hemarthrosis involving knee joint Condition: Stable Prescriptions: No Action (DME) cam boot See Rx Instructions .Route .MEDSUPPLY Qty: 1 0RF Rx Instructions: As directed (DME) ASO brace See Rx Instructions .Route .MEDSUPPLY Qty: 1 0RF Rx Instructions: As directed ondansetron HCl 4 mg tablet 4 mg PO Q6H PRN (Reason: nausea and vomiting) Qty: 30 1RF Rx Instructions: for nausea alendronate 70 mg tablet 70 mg PO .weekly Qty: 90 3RF lorazepam 0.5 mg tablet 0.5 mg PO TID PRN (Reason: anxiety/nervousness/sleep) Qty: 90 3RF cyclobenzaprine 5 mg tablet 5 mg PO TID PRN (Reason: muscle spasm) Qty: 20 1RF tramadol 50 mg tablet 50 mg PO TID Qty: 90 5RF methadone 5 mg tablet 5 mg PO DAILY 30 Days Qty: 30 0RF hydrochlorothiazide 25 mg tablet 12.5 mg PO DAILY hydrocodone-acetaminophen 5-325 mg tablet 1 tab PO Q8H PRN (Reason: pain (scale score 7-10)) Qty: 10 0RF acetaminophen [Tylenol Ex Str Arthritis Pain] 500 mg Tablet 500 mg PO QID PRN (Reason: Pain) Women's 50 Plus Multivitamin 400 mcg-500 mg calcium-20 mcg Tablet 1 tab PO DAILY Discharge Orders: Discharge ED (Routine); Ordered 12/19/22 Ordered By: Audi Conde Referrals: Krishna Last, [Primary Care Provider] - Discharge Diet: Regular Discharge Activity: Limit activity as instructed and Use walker/crutches as instructed Activity Restrictions/Additional Instructions: Follow-up with orthopedic doctor at your scheduled appointment on December 27. Wear knee immobilizer and no weightbearing until cleared by orthopedic doctor. Continue taking all medications as previously prescribed. Case management to be contacted in the next several days to set up an appointment for an outpatient CT of right knee. Return to the ER or your medical provider if condition worsens. Please read and understand discharge instructions. Thank you for choosing [facility] for your healthcare needs today. Please realize this is an emergency room and that we are providing you with a medical screening exam and this may not be complete and all inclusive of all the testing and or work up that you may need to determine your ailment or severity of your illness. It is very important that you follow up as instructed or that you return to the Emergency Department should you have concerns or if your condition changes or worsens in any way. Coding Level of Care Code ED Engineer Conductor for Angel Chacon
[2022-12-19] MEDS: orphenadrine 30 mg/mL Inj 2 mL 60 MG IM (12:36)
[2022-12-19] MEDS: morphine 4 mg/mL SDV 1 mL IM (12:36)
[2022-12-19] MEDS: oxyCODONE-APAP 5-325 mg Tablet 1 TAB PO (13:46)
[2022-12-19 14:33] VITALS: BP 131/87; RESP 18; O2SAT 100
--- NOTE | 2022-12-20 08:44 | DCPLANNER ---
Addendum entered by Lauren Lopez 12/24/22 10:16: Patient had a CT of right knee scheduled for 12.23.22 - patient did attend Original Note: manager implementation had message to schedule an outpatient CT of right knee. manager implementation faxed signed order to centralized scheduling, who will call patient with appointment information.
== END 2022-12-19 16:10 | disposition home or self-care (01) ==
PROVIDERS: Emergency Provider Physician Assistant; PCP Family Medicine
DX: M25.061 Hemarthrosis, right knee (principal); M25.561 Pain in right knee
CPT/HCPCS: 96372; 99284; J2270; J2360

== ENCOUNTER 2022-12-23 14:03 | Outpatient (CLI) | payer MEDICARE, SELFPAY ==
--- NOTE | 2022-12-23 14:08 | CT_ITS ---
WS: [id number] CT RIGHT KNEE, NONCONTRAST TECHNIQUE: Noncontrast CT of the RIGHT knee to include the RIGHT hip and ankle. [facility] CLINICAL INFORMATION: PAIN OF RIGHT KNEE, HEMARTHROSIS OF RIGHT KNEE JOINT COMPARISON: None. DLP: 291.[address] scans at [facility] use at least one of these dose optimization techniques: automated e xposure control; mA and/or kV adjustment per patient size (includes targeted exams where dose is matc hed to clinical indication); or iterative reconstruction. FINDINGS: Advanced osteoarthritis RIGHT knee worse in the lateral joint compartment. Hypertrophic changes along the joint line. Moderate suprapatellar effusion. Soft tissue edema. Advanced subchondral cystic change worse in the lateral joint compartment with complete loss of joint space. Calcification involving the ACL. Chondrocalcinosis medial joint compartment. Osteopenia. Hypertrophic patella. Advanced narrowing patellofemoral articulation. Calcification along the semimem branosus and medial head of the gastrocnemius. CT/CT knee RT wo con* [id number] IMPRESSION: Images obtained for preoperative purposes.
== END 2022-12-23 14:04 | disposition home or self-care (01) ==
PROVIDERS: PCP Family Medicine; Visit Provider Physician Assistant
DX: M25.061 Hemarthrosis, right knee (principal); M17.11 Unilateral primary osteoarthritis, right knee; M25.561 Pain in right knee; M25.461 Effusion, right knee
CPT/HCPCS: 73700

== ENCOUNTER → 2022-12-27 10:53 | Outpatient (BNVA) | payer MEDICARE, SELFPAY | PROVIDERS: PCP Family Medicine; Referring Provider Nurse Practitioner Family; Visit Provider Student in an Organized Health Care Education/Training Program | DX: M17.11 Unilateral primary osteoarthritis, right knee (principal); S89.91XA Unspecified injury of right lower leg, initial encounter; W19.XXXA Unspecified fall, initial encounter | CPT/HCPCS: 20610; 99204; J3301; L3761 ==

== ENCOUNTER → 2023-01-30 09:23 | Outpatient (BNVA) | payer MEDICARE, SELFPAY | PROVIDERS: PCP Family Medicine; Visit Provider Family Medicine | DX: R73.9 Hyperglycemia, unspecified (principal) | CPT/HCPCS: 83036 ==

== ENCOUNTER → 2023-04-08 11:08 | Outpatient (BNVA) | payer MEDICARE, SELFPAY | PROVIDERS: PCP Family Medicine; Visit Provider Family Medicine | DX: N39.0 Urinary tract infection, site not specified (principal) | CPT/HCPCS: 81000 ==

== ENCOUNTER → 2023-04-28 10:43 | Outpatient (BNVA) | payer MEDICARE, SELFPAY | PROVIDERS: PCP Family Medicine; Visit Provider Family Medicine | DX: N39.0 Urinary tract infection, site not specified (principal); M54.16 Radiculopathy, lumbar region; G47.00 Insomnia, unspecified; E11.9 Type 2 diabetes mellitus without complications | CPT/HCPCS: 80053; 83036 ==

== ENCOUNTER → 2023-10-16 11:49 | Outpatient (BNVA) | payer MEDICARE, SELFPAY | PROVIDERS: PCP Family Medicine; Visit Provider Family Medicine | DX: Z13.6 Encounter for screening for cardiovascular disorders (principal); F41.9 Anxiety disorder, unspecified; E11.9 Type 2 diabetes mellitus without complications; M81.0 Age-related osteoporosis without current pathological fracture; M19.90 Unspecified osteoarthritis, unspecified site; G47.00 Insomnia, unspecified; R73.9 Hyperglycemia, unspecified | CPT/HCPCS: 80053; 80061; 83036; 85025 ==

== ENCOUNTER → 2024-01-06 09:12 | Outpatient (BNVA) | payer MEDICARE, SELFPAY | PROVIDERS: PCP Family Medicine; Visit Provider Family Medicine | DX: E03.9 Hypothyroidism, unspecified (principal); M19.90 Unspecified osteoarthritis, unspecified site; G47.00 Insomnia, unspecified; R53.83 Other fatigue | CPT/HCPCS: 82607; 84443 ==

== ENCOUNTER → 2024-08-24 10:34 | Outpatient (BNVA) | payer MEDICARE, SELFPAY | PROVIDERS: Visit Provider Family Medicine | DX: E11.9 Type 2 diabetes mellitus without complications (principal); R53.83 Other fatigue; E03.9 Hypothyroidism, unspecified; E11.65 Type 2 diabetes mellitus with hyperglycemia | CPT/HCPCS: 80053; 80061; 82607; 83036; 84443; 85025 ==